=== PATIENT | female | born 1965 | race Caucasian/White ===

== ENCOUNTER → 2017-03-02 | Outpatient (CLI) | payer BC ==
--- NOTE | 2017-03-02 14:42 | RAD ---
Left knee, 3 views, 03/02/2017: History: Knee pain There is mild marginal spurring medially and laterally. There is mild spurring at the patellofemoral articulation. No fracture or dislocation is identified. No significant joint effusion is seen. IMPRESSION: 1. Mild degenerative change. 2. No acute bony abnormality is detected.
== END | disposition home or self-care (01) ==
LOC: DXRADRC 11:57
PROVIDERS: ATTEND Physician Assistant
DX: S89.82XA Other specified injuries of left lower leg, initial encounter (principal); M17.12 Unilateral primary osteoarthritis, left knee; M25.862 Other specified joint disorders, left knee; X58.XXXA Exposure to other specified factors, initial encounter; Y93.89 Activity, other specified; Y92.89 Other specified places as the place of occurrence of the external cause; Y99.8 Other external cause status
CPT/HCPCS: 73562

== ENCOUNTER 2020-04-20 10:55 | Emergency (ER) | payer BC ==
[~2020-04-20] VITALS: Ht 167.6 cm; Wt 172.6 kg
[2020-04-20] MEDS ORDERED: ONDANSETRON PF 4 MG/2 ML VIAL. IVP ONE (11:15)
[2020-04-20] MEDS ORDERED: MORPHINE SULFATE 4 MG/ML DISP.SYRIN. IV ONE (11:15)
--- NOTE | 2020-04-20 11:19 | PHYS DOC ---
General Adult EDM: Chief Complaint: BACK PAIN OR INJURY HPI: HPI: History obtained from the patient. Patient is a 54-year-old female with history of hypertension, hysterectomy who presents with chief complaint of gradual onset right flank pain over the past 3 days. She notes the pain is sharp in nature. States the pain seems to be worsening. She has tried naproxen and her sisters tramadol at home with no relief. She states the pain does not radiate. She notes some nausea without vomiting. Denies fevers. Does note increased urge to void. Denies dysuria or hematuria. Denies any history of kidney stone. Denies syncope. She denies any chest pain or shortness of breath. She states it is somewhat difficult to find a position of comfort. She states this pain is not made worse with food. She reports normal bowel movements. Patient denies any urinary retention, stool incontinence, saddle anesthesia, history of IV drug use, or history of cancer. Review of Systems: Review of Systems: Constitutional: Denies fever or chills Eyes: Denies change in visual acuity HENT: Denies nasal congestion or sore throat Respiratory: Denies cough or shortness of breath Cardiovascular: Denies chest pain or edema GI: Denies abdominal pain, nausea, vomiting, bloody stools or diarrhea : Increased urge to void Musculoskeletal: Flank pain Integument: Denies rash Neurologic: Denies headache, focal weakness or sensory changes Endocrine: Denies polyuria or polydipsia Lymphatic: Denies swollen glands Psychiatric: Denies depression or anxiety Heart Score: Risk Factors: Risk Factors: DM, Current or recent (<one month) smoker, HTN, HLP, family history of CAD, obesity. Risk Scores: Score 0 - 3: 2.5% MACE over next 6 weeks - Discharge Home Score 4 - 6: 20.3% MACE over next 6 weeks - Admit for Clinical Observation Score 7 - 10: 72.7% MACE over next 6 weeks - Early Invasive Strategies Current Medications: Current Meds: Current Medications Medications (Trade) Dose Ordered Sig/Guilherme Start Time Stop Time Status Last Admin Dose Admin Morphine Sulfate (Morphine 4mg Syringe) 4 mg 1X ONCE 04/20/20 11:15 04/20/20 11:16 DC Ondansetron HCl (Zofran) 4 mg 1X ONCE 04/20/20 11:15 04/20/20 11:16 DC Allergies: Allergies: Allergies Coded Allergies Type Severity Reaction Last Updated Verified ciprofloxacin Allergy Unknown 04/20/20 Yes latex Allergy Unknown 04/20/20 Yes Physical Exam: PE: Constitutional: Well developed, well nourished, no acute distress, non-toxic appearance. [] HENT: Normocephalic, atraumatic, bilateral external ears normal, oropharynx moist, no oral exudates, nose normal. [] Eyes: PERRLA, EOMI, conjunctiva normal, no discharge. [] Neck: Normal range of motion, no tenderness, supple, no stridor. [] Cardiovascular:Heart rate regular rhythm, no murmur [] Lungs & Thorax: Bilateral breath sounds clear to auscultation [] Abdomen: soft, no tenderness, no masses, no pulsatile masses. [] Skin: Warm, dry, no erythema, no rash. [] Back: Moderate right CVA tenderness. + 5/5 motor strength in dorsiflexion and plantarflexion of the great toes bilaterally. Sensation intact between the webbing of the first and second toes bilaterally. Extremities: No tenderness, no cyanosis, no clubbing, ROM intact, no edema. [] Neurologic: Alert and oriented X 3, normal motor function, normal sensory function, no focal deficits noted. [] Psychologic: Affect normal, judgement normal, mood normal. [] Current Patient Data: Labs: Laboratory Tests Test 04/20/20 11:09 04/20/20 11:20 04/20/20 12:52 Urine Collection Type Unknown Urine Color Yellow Urine Clarity Clear Urine pH 6.0 Urine Specific Abrams 1.015 Urine Protein Neg Urine Glucose (UA) Neg mg/dL Urine Ketones (Stick) Neg mg/dL Urine Blood Small Urine Nitrite Neg Urine Bilirubin Neg Urine Urobilinogen Dipstick 0.2 mg/dL Urine Leukocyte Esterase Neg Urine RBC 6-10 /HPF Urine WBC 1-4 /HPF Urine Squamous Epithelial Cells Many /LPF Urine Bacteria 0 /HPF White Blood Count 9.4 x10^3/uL Red Blood Count 4.95 x10^6/uL Hemoglobin 13.9 g/dL Hematocrit 42.6 % Mean Corpuscular Volume 86 fL Mean Corpuscular Hemoglobin 28 pg Mean Corpuscular Hemoglobin Concent 33 g/dL Red Cell Distribution Width 15.1 % Platelet Count 312 x10^3/uL Neutrophils (%) (Auto) 62 % Lymphocytes (%) (Auto) 27 % Monocytes (%) (Auto) 8 % Eosinophils (%) (Auto) 3 % Basophils (%) (Auto) 1 % Neutrophils # (Auto) 5.8 x10^3uL Lymphocytes # (Auto) 2.5 x10^3/uL Monocytes # (Auto) 0.8 x10^3/uL Eosinophils # (Auto) 0.3 x10^3/uL Basophils # (Auto) 0.1 x10^3/uL Sodium Level 133 mmol/L Potassium Level 4.2 mmol/L Chloride Level 98 mmol/L Carbon Dioxide Level 26 mmol/L Anion Gap 9 Blood Urea Nitrogen 15 mg/dL Creatinine 1.2 mg/dL Estimated GFR (Cockcroft-Gault) 46.5 Glucose Level 122 mg/dL Calcium Level 8.9 mg/dL Bedside Urine HCG, Qualitative hcg negative Current Medications Medications (Trade) Dose Ordered Sig/Guilherme Route PRN Reason Start Time Stop Time Status Last Admin Dose Admin Morphine Sulfate (Morphine 4mg Syringe) 4 mg 1X ONCE IV 04/20/20 11:15 04/20/20 11:16 DC 04/20/20 11:39 Ondansetron HCl (Zofran) 4 mg 1X ONCE IVP 04/20/20 11:15 04/20/20 11:16 DC 04/20/20 11:38 Sodium Chloride 1,000 ml @ 1,000 mls/hr 1X ONCE IV 04/20/20 11:45 04/20/20 12:44 DC 04/20/20 11:40 Acetaminophen/ Hydrocodone Bitart (Lortab 5/325) 2 tab 1X ONCE PO 04/20/20 12:30 04/20/20 12:32 DC 04/20/20 12:41 Vital Signs: Vital Signs Date Time Temp Pulse Resp B/P (MAP) Pulse Ox O2 Delivery O2 Flow Rate FiO2 04/20/20 12:42 89 18 141/77 (98) 93 Room Air 04/20/20 12:41 94 Room Air 04/20/20 12:14 79 18 124/89 (101) 95 Room Air 04/20/20 11:45 76 20 129/77 (94) 96 Room Air 04/20/20 11:39 95 Room Air 04/20/20 11:08 97.8 92 22 135/89 (227) 94 Room Air EKG: EKG: [] Radiology/Procedures: Radiology/Procedures: [][address] [address] IMAGING REPORT Signed PATIENT: NIKKI MARAVILLA ACCOUNT: [id number] : 1965 LOCATION: ER AGE: 54 SEX: F EXAM STATUS: REG ER ORD. PHYSICIAN: EVA ANGEL DO REASON: R flank pain PROCEDURE: CT ABDOMEN PELVIS WO CONTRAST EXAMINATION: CT ABDOMEN PELVIS WO CONTRAST (CT ABDOMEN/PELVIS WITHOUT IV CONTRAST) CLINICAL HISTORY: Right flank pain TECHNIQUE: Non-IV contrast imaging of the abdomen and pelvis was performed using standard technique, scanning from just above the dome of the diaphragm to the symphysis pubis. Unenhanced imaging is limited for the evaluation of some intra-abdominal and pelvic pathology. CT Dose Reduction Employed: One or more of the following individualized dose reduction techniques were utilized for this examination: 1. Automated exposure control 2. Adjustment of the mA and/or kV according to patient size 3. Use of iterative reconstruction technique. COMPARISON: None FINDINGS: Lower thorax: Unremarkable. Liver: Unremarkable. Biliary: Cholecystectomy Spleen: No splenomegaly. Pancreas: Unremarkable. Adrenals: No mass. Kidneys: No calculus, hydronephrosis or finding to suggest a cyst or mass in the unenhanced kidneys. GI Tract: No bowel dilation. Left colonic diverticulosis without evidence of acute diverticulitis on limited noncontrast evaluation. Normal appendix. Lymph Nodes: No lymphadenopathy. Mesentery/peritoneum: No ascites. Retroperitoneum: No mass. Vasculature: Arterial atherosclerotic disease without aneurysm. Pelvis: No mass or ascites. Minimally filled urinary bladder suboptimally evaluated. Bones/Soft Tissues: Mild thoracolumbar degenerative changes. IMPRESSION: No evidence of acute abdominopelvic abnormality. Colonic diverticulosis without evidence of diverticulitis on limited noncontrast evaluation. Electronically signed by: Percy Muñoz DO (04/20/2020 11:51 AM) [id number] DICTATED AND SIGNED BY: PERCY MUÑOZ DO DATE: 04/20/20 [id number] CC: JOSE RAMON ZEPEDA; TANQUARY,EVA H DO ~ Course & Med Decision Making: Course & Med Decision Making Pertinent Labs and Imaging studies reviewed. (See chart for details) [] Patient is a 54-year-old female presents with chief complaint of right lower back pain. She does note mild increased urge to void. Low suspicion for an ginal equivalent given the pain she is describing his lower back and she denies any chest pain or shortness of breath. Initial vital signs grossly unremarkable. Basic labs were obtained. Mild elevation of her creatinine at 1.2. CT imaging was obtained and does not show any acute abnormality. Urinalysis without obvious evidence of infection. White blood cells present without bacteria. She has no reproducible right lower quadrant tenderness to palpation at this time. small blood noted on urine sample. She may be experiencing a recently passed kidney stone. This could represent clinical pyelonephritis as well. Repeat examination her symptoms have improved. I do feel overall she is appropriate for discharge home with close 12 to 24-hour follow-up. Patient is agreeable to this. She be discharged home with a course of antibiotics for potential infection. Nausea medicine also be prescribed. She was instructed to return in 12 to 24 hours should her symptoms not improve or worsen. She has tolerated p.o. She has been ambulatory without difficulty. No red flag signs or symptoms regarding her back pain. She continues to deny any chest pain or shortness of breath. Stable for discharge home. Charly Disclaimer: Charly Disclaimer: This electronic medical record was generated, in whole or in part, using a voice recognition dictation system. Departure Departure: Impression: Primary Impression: Right flank pain Disposition: 01 HOME/RESIDENCE PRIOR TO ADM Condition: STABLE Referrals: JOSE RAMON ZEPEDA (PCP) Additional Instructions: Discharge Abdominal Pain Re-Check Precautions: I'm unsure of the specific cause of your abdominal pain. However, at this point I feel that you are low risk for a life threatening emergency and that discharge from the Emergency Department is safe. There is a very small possibility that you are just too early in your clinical course for our physical exam/labs/imaging to ascertain whether or not you have an emergent condition that could potentially cause permanent disability or be life threatening. As such, it is very important that you follow up with your primary doctor or return to the Emergency Department in 12-24 hours for re-assessment and further evaluation if clinically indicated. If you develop new or worsening symptoms then you should return to the Emergency Department immediately. Home Care Instructions: Abdominal Pain Many things may cause abdominal pain. Your ER visit might not show the exact reason you are having pain. In some cases, additional time is needed to determine if the cause is serious. Therefore you may be told to go home and watch for any changes or worsening in your condition. Before that, we may not know if you need more testing, or if hospitalization or surgery is necessary. If its not something serious, the pain may go away without treatment or get better with simple things like avoiding certain foods or medications. In the ER, your doctor asks you questions, examines you and in some cases, may order tests. These help doctors decide if the pain is from something serious. Tests are not always done and may not provide a definite answer. There can still be a problem, even with normal test results. Abdominal pain may be caused by something serious (like appendicitis), which is not obvious right away. Because of this, another checkup is needed to make sure you are OK. It is VERY IMPORTANT to follow up for a repeat exam, especially if you have any symptoms that are not going away or are getting worse. We recommend that you RETURN TO THE EMERGENCY ROOM IN 8-12 HOURS to be rechecked. If you cannot, you may follow up with your primary care doctor or clinic. It is important that you follow all of the instructions below. RETURN TO THE EMERGENCY ROOM IMMEDIATELY IF: The pain does not go away or gets worse. You have a fever. You keep throwing up and cannot keep anything down. You pass bloody or black stools. You develop new symptoms. HOME CARE INSTRUCTIONS Come back to the ER (or see your doctor) in 8-12 hours. DO NOT take laxatives unless directed by your doctor. Avoid the use of alcohol Take pain medicine only as directed by your doctor. Only take [id number] or prescription medicine as directed by your doctor . Try a clear liquid diet (broth, tea, jello, water) for the next 12-24 hours. Slowly move to a bland diet as tolerated. Do not eat greasy, fatty or spicy foods. Once you start getting better, go back to a normal, healthy diet, slowly over a few days. DISCHARGE PT INSTRUCTIONS: YOU HAVE BEEN EVALUATED FOR ABDOMINAL PAIN. HOWEVER, WE ARE UNABLE TO PROVIDE A DEFINITE CAUSE OF YOUR SYMPTOMS. EVEN THOUGH YOUR TESTS MAY HAVE BEEN NORMAL, YOU STILL COULD HAVE A SERIOUS CAUSE FOR YOUR ABDOMINAL PAIN, INCLUDING APPENDICITIS. THE BEST TEST TO DETERMINE IF YOU HAVE A SERIOUS CAUSE IS RE-EXAMINATION OVER TIME. WE USED TO ADMIT PATIENTS TO THE HOSPITAL FOR THIS, BUT CAN NOW ALLOW YOU TO GO HOME, & RETURN TO OUR ER THE NEXT DAY FOR RE- EXAMINATION. THUS, WE WOULD LIKE YOU TO RETURN TO OUR ER TOMORROW FOR YOUR RE- EVALUATION. (IF YOUR SYMPTOMS HAVE GONE AWAY, THEN YOU DO NOT NEED TO RETURN.) IF YOUR SYMPTOMS GET WORSE BETWEEN NOW & THEN, YOU SHOULD RETURN IMMEDIATELY & NOT WAIT UNTIL TOMORROW. SYMPTOMS TO LOOK FOR WORSENING PAIN, HIGH FEVER, PERSISTENT VOMITING [NOT CONTROLLED BY MEDICINE], AND/OR OVERALL WORSENING OF YOUR CONDITION. Scripts Cephalexin (KEFLEX) 500 Mg Capsule 500 MG PO BID for UTI for 5 Days, #10 TAB Prov: EVA ANGEL DO 04/20/20 Acetaminophen (TYLENOL) 325 Mg Tablet 1-2 TAB PO QID for pain, #20 TAB 2 Refills Prov: EVA ANGEL DO 04/20/20 EVA ANGEL DO Apr 20, 2020 11:19
[2020-04-20 11:39] LABS: BASO # 0.1 x10^3/uL (0.0-0.2); BASO % 1 % (0-3); EOS # 0.3 x10^3/uL (0.0-0.7); EOS % 3 % (0-3); HEMATOCRIT 42.6 % (36.0-47.0); HEMOGLOBIN 13.9 g/dL (12.0-15.5); LYMPH # 2.5 x10^3/uL (1.0-4.8); LYMPH % 27 % (24-48); MEAN CORPUSCULAR HEMOGLOBIN 28 pg (25-35); MEAN CORPUSCULAR HGB CONC 33 g/dL (31-37); MEAN CORPUSCULAR VOLUME 86 fL (79-100); MONO # 0.8 x10^3/uL (0.0-1.1); MONO % 8 % (0-9); NEUT # 5.8 x10^3uL (1.8-7.7); NEUT % 62 % (31-73); PLATELET COUNT 312 x10^3/uL (140-400); RED BLOOD COUNT 4.95 x10^6/uL (3.50-5.40); RED CELL DISTRIBUTION WIDTH 15.1 % (11.5-14.5); WHITE BLOOD COUNT 9.4 x10^3/uL (4.0-11.0)
[2020-04-20] MEDS ORDERED: IV NORMAL SALINE 1,000ML 1,000 ML IV ONE (11:45)
[2020-04-20 11:47] LABS: CALCIUM 8.9 mg/dL (8.5-10.1); CREATININE 1.2 mg/dL (0.6-1.0); GFR 46.5; POTASSIUM 4.2 mmol/L (3.5-5.1)
--- NOTE | 2020-04-20 11:54 | RAD ---
EXAMINATION: CT ABDOMEN PELVIS WO CONTRAST (CT ABDOMEN/PELVIS WITHOUT IV CONTRAST) CLINICAL HISTORY: Right flank pain TECHNIQUE: Non-IV contrast imaging of the abdomen and pelvis was performed using standard technique, scanning from just above the dome of the diaphragm to the symphysis pubis. Unenhanced imaging is limited for the evaluation of some intra-abdominal and pelvic pathology. CT Dose Reduction Employed: One or more of the following individualized dose reduction techniques were utilized for this examination: 1. Automated exposure control 2. Adjustment of the mA and/or kV according to patient size 3. Use of iterative reconstruction technique. COMPARISON: None FINDINGS: Lower thorax: Unremarkable. Liver: Unremarkable. Biliary: Cholecystectomy Spleen: No splenomegaly. Pancreas: Unremarkable. Adrenals: No mass. Kidneys: No calculus, hydronephrosis or finding to suggest a cyst or mass in the unenhanced kidneys. GI Tract: No bowel dilation. Left colonic diverticulosis without evidence of acute diverticulitis on limited noncontrast evaluation. Normal appendix. Lymph Nodes: No lymphadenopathy. Mesentery/peritoneum: No ascites. Retroperitoneum: No mass. Vasculature: Arterial atherosclerotic disease without aneurysm. Pelvis: No mass or ascites. Minimally filled urinary bladder suboptimally evaluated. Bones/Soft Tissues: Mild thoracolumbar degenerative changes. IMPRESSION: No evidence of acute abdominopelvic abnormality. Colonic diverticulosis without evidence of diverticulitis on limited noncontrast evaluation. Electronically signed by: Percy Del Real DO (04/20/2020 11:51 AM) [id number]
[2020-04-20] MEDS ORDERED: HYDROcodone/APAP 5/325MG 1 TAB TABLET PO ONE (12:30)
[2020-04-20 12:56] LABS: BILIRUBIN,URINE NEG (NEG); CLARITY,URINE CLEAR; COLOR,URINE YELLOW; GLUCOSE,URINE NEG (NEG)
[2020-04-20 12:57] LABS: BACTERIA,URINE 0 /HPF (0-FEW); NITRITE,URINE NEG (NEG); SQUAMOUS EPITHELIAL CELL,UR MANY /LPF; UROBILINOGEN,URINE 0.2 mg/dL (0.2 mg/dL)
[2020-04-20] MEDS ORDERED: ACET325T9 PO (13:33)
[2020-04-20] MEDS ORDERED: CEPH-264 PO (13:33)
[2020-04-20 13:39] VITALS: BP 111/65
== END 2020-04-20 14:05 | disposition home or self-care (01) ==
LOC: ER 10:55
DX: R10.9 Unspecified abdominal pain (principal); Z88.1 Allergy status to other antibiotic agents; Z91.040 Latex allergy status
CPT/HCPCS: 36415; 74176; 80048; 81001; 81025; 85025; 96361; 96374; 96375; 99284; J2270; J2405; J7030

== ENCOUNTER 2020-04-22 08:55 | Emergency (ER) | payer BC ==
[~2020-04-22] VITALS: Ht 167.6 cm; Wt 181.0 kg
[~2020-04-22 08:55] MED LIST: ACET325T9 PO; CEPH-264 PO
--- NOTE | 2020-04-22 09:13 | PHYS DOC ---
Past History Past Medical History: Anxiety, Depression, Diabetes, Hypertension Past Surgical History: Hysterectomy, Tonsillectomy Alcohol Use: None General Adult EDM: Chief Complaint: BACK PAIN OR INJURY HPI: HPI: 54-year-old female past medical history significant for niddm, hypertension, anxiety/depression, and morbid obesity, presents to the ED with complaints of atraumatic right sided low back pain described as a dull ache that radiates to her right hip/buttock, present for the past 4 days. Patient cannot recall what she was doing when her symptoms started, cannot recall any trauma, heavy lifting or inciting event. Complains of 10 out of 10 pain, no relief with Tylenol, Motrin and Naprosyn. Is taking her Keflex that she was prescribed. Last vomit was yesterday, normal brown color. History of hysterectomy and T&A surgery. Patient denies any history of alcohol or drug use. Is an IV drug user. No history of immunocompromised disease. No h/o prior back trauma. No recent nguyễn rgeries/procedures/hospitalizations. EMR was reviewed and patient was seen in the ED 2 days ago, CT abdomen pelvis without contrast shows diverticulosis with no diverticulitis, no aneurysm, no acute pathology. U/A contaminated-was treated for uti with keflex. Creatinine was 1.2. Review of Systems: Review of Systems: Constitutional: Denies fever or chills Eyes: Denies change in visual acuity HENT: Denies nasal congestion or sore throat Respiratory: Denies cough or shortness of breath Cardiovascular: Denies chest pain or edema GI: Denies abdominal pain, nausea, vomiting, bloody stools or diarrhea, melena, hematochezia, hematemesis or hemoptysis : Denies dysuria or hematuria, no urinary or bowel retention or incontinence Musculoskeletal: Denies joint pain or swelling Integument: Denies rash Neurologic: Denies headache, focal weakness or sensory changes, no neck stiffness or nuchal rigidity, no saddle anesthesia, no radiculopathy Endocrine: Denies polyuria or polydipsia Lymphatic: Denies swollen glands Psychiatric: Denies depression or anxiety Heart Score: Risk Factors: Risk Factors: DM, Current or recent (<one month) smoker, HTN, HLP, family history of CAD, obesity. Risk Scores: Score 0 - 3: 2.5% MACE over next 6 weeks - Discharge Home Score 4 - 6: 20.3% MACE over next 6 weeks - Admit for Clinical Observation Score 7 - 10: 72.7% MACE over next 6 weeks - Early Invasive Strategies Allergies: Allergies: Allergies Coded Allergies Type Severity Reaction Last Updated Verified ciprofloxacin Allergy Unknown 04/22/20 Yes latex Allergy Unknown 04/22/20 Yes Physical Exam: PE: Constitutional: Well developed, well nourished, no acute distress, non-toxic appearance, truncal morbid obesity HENT: Normocephalic, atraumatic, bilateral external ears normal, oropharynx moist, no oral exudates, nose normal. [] Eyes: EOMI, conjunctiva normal, no discharge. [] Neck: Normal range of motion, no tenderness, supple, no stridor. [] Cardiovascular: S1 and S2 present Lungs & Thorax: Speaking in full sentences, bilateral equal chest rise Abdomen: Bowel sounds normal, soft, no tenderness, no masses, no pulsatile masses. [] Skin: Warm, dry, no erythema, Back: right lateral L3/5 ttp, no rash, no midline back ttp, no CVA tenderness. [] straight leg test negative Extremities: No tenderness, no cyanosis, no clubbing, ROM intact, no edema. [] Neurologic: Alert and oriented X 3, normal motor function, normal sensory function, no focal deficits noted. [] Psychologic: Affect normal, judgement normal, mood normal. [] EKG: EKG: Sinus rhythm at 90 bpm, no axis deviation, normal intervals, T wave inversion V2, no ST elevations or ST depressions, low limb lead voltage Radiology/Procedures: Radiology/Procedures: IMAGING REPORT Signed PATIENT: NIKKI MARAVILLA ACCOUNT: [id number] : 1965 LOCATION: ER AGE: 54 SEX: F EXAM STATUS: REG ER ORD. PHYSICIAN: JOSE RAMON DWYER DO REASON: RIGHT LOWER BACK PAIN PROCEDURE: CT ABD PELV W/ IV CONTRST ONLY Study: CT abdomen/pelvis with intravenous contrast Indication: Right lower back pain. Comparison: 04/20/2020 Technique: Helical CT imaging performed of the abdomen and pelvis after the intravenous administration of 75 cc Omnipaque 300 contrast. Sagittal and coronal reformats were obtained. One or more of the following individualized dose reduction techniques were utilized for this examination: 1. Automated exposure control 2. Adjustment of the mA and/or kV according to patient size 3. Use of iterative reconstruction technique. Findings: No newly seen abnormality at the lower chest. Hepatic steatosis. The liver is somewhat prominent in size. Within normal limits size of the spleen. Surgically absent gallbladder. Unchanged/unremarkable pancreas. Normal adrenal glands. Unremarkable kidneys. No intrarenal stone on either side. No collecting system dilatation. Mildly distended urinary bladder. No localized or circumferential wall thickening. Absent uterus. No adnexal mass. Colonic diverticulosis without diverticulitis. Normal appendix. Nonobstructed small bowel. Poorly evaluated stomach on account of underdistention. Mild scattered calcific atherosclerosis. Nonaneurysmal aorta. Unremarkable major veins. Mildly enlarged precaval lymph node on image 33 series 2 is most likely reactive in the setting of hepatic steatosis. No retroperitoneal, mesenteric or pelvic adenopathy. No ascites or pneumoperitoneum. Unchanged ventral midline fat-containing hernias such is seen at the upper abdomen on image 29 series 2 and supraumbilical on image 61 series 2. Edema-like attenuation along the patient's umbilicus has increase in the interim but this is unlikely clinically significant given reported symptoms. Somewhat progressed scattered body wall edema as well. No newly seen abnormality of the musculature. No change in vertebral body height or alignment. Redemonstration of trace anterolisthesis of L4 on L5 in the setting of bilateral facet degeneration. Vacuum phenomenon at L5-S1 is unchanged. No evidence for severe central canal stenosis. Osseous neural foraminal stenosis is again greatest on the left at L5-S1. Impression: 1. No acute abnormality seen throughout the abdomen or pelvis. Redemonstration of hepatic steatosis/hepatomegaly, colonic diverticulosis and several uncomplicated ventral midline fat-containing hernias. 2. No acute or aggressive osseous process. Scattered degenerative changes are no different. No evidence for severe central canal stenosis. Osseous neural foraminal encroachment is greatest on the left at L5-S1 favored to be moderate. Electronically signed by: ROSALBA JARQUIN MD (04/22/2020 11:37 AM) [id number] DICTATED AND SIGNED BY: ROSALBA JARQUIN MD DATE: 04/22/20 1137 CC: JOSE RAMON ZEPEDA; JOSE RAMON DWYER DO ~ Course & Med Decision Making: Course & Med Decision Making Pertinent Labs and Imaging studies reviewed. (See chart for details) Concern for left L5-S1 neuropathy/radiculopathy. Red flags for back pain reviewed. Labs show improving creatinine from 1.2-1.1. No leukocytosis. Patient is afebrile and hemodynamically stable. Sodium 128, down from 133. Urinalysis shows no leukocyte esterase or nitrites, few bacteria. Encouraged patient to complete her antibiotics. Will prescribe Flexeril and anti- inflammatories as needed for pain, rest and conservative measures for L5-S1 neuropathy. Suspect associated muscle spasm of right low back. Strict ED return precautions given for neurologic deficits, saddle anesthesia, urinary bowel retention or incontinence. Encouraged urgent outpatient follow-up with PMD and Ortho. Life-threatening processes were considered but are low suspicion at this time, given history and physical exam. Pt was educated on all prescription medications and adverse effects. All patient's questions were answered and pt was stable at time of discharge. Life/limb-threatening differential includes but is not limited to, aortic dissection, cauda equina syndrome, transverse myelitis, spinal cord compression, epidural abscess or hematoma, osteomyelitis, disc herniation, surgical abdomen, stable or unstable fracture, renal colic/urosepsis, musculoskeletal injury, traumatic injury, intraabdominal or pelvic bleeding, I spoken with the patient and her caregivers. I explained the patient's condition, diagnoses and treatment plan based on the information available to me at this time. I have answered the patient and her caregiver's questions and addressed any concerns. The patient and her caregivers have a good understanding of patient's diagnosis, condition and treatment plan as can be expected at this point. Vital signs have been stable. Patient's condition is stable and appropriate for discharge from the emergency department. Patient will pursue further outpatient evaluation with primary care physician or other designated or consulting physician as outlined in the discharge instructions. The patient and/or caregivers are agreeable to this plan of care and follow-up instructions have been explained in detail. The patient and/or caregivers have received these instructions in written form and have expressed an understanding of the discharge instructions. The patient and/or caregivers are aware that any significant change of condition or worsening of symptoms should prompt immediate return to this or the closest emergency department or call to 911. Charly Disclaimer: Charly Disclaimer: This electronic medical record was generated, in whole or in part, using a voice recognition dictation system. Departure Departure: Impression: Primary Impression: Neuropathy, lumbosacral (radicular) Additional Impression: Low back pain Disposition: 01 HOME/RESIDENCE PRIOR TO ADM Condition: STABLE Referrals: JOSE RAMON ZEPEDA (PCP) in 3- 5 days Patient Instructions: Back Pain, Adult, Pain, Neuropathic Additional Instructions: FOLLOW UP WITH ORTHOPEDICS: [facility] [address] [place], [place] [address] [place] [id number] EMERGENCY DEPARTMENT GENERAL DISCHARGE INSTRUCTIONS Thank you for coming to [facility] (ED) today and trusting us with you care. We trust that you had a positivie experience in our Emergency Department. If you wish to speak to the department management, you may call the director at [phone]. YOUR FOLLOW UP INSTRUCTIONS ARE FOLLOWS: 1. Do you have a private Doctor? If you do not have a private doctor, please a sk for a resource list of physicians or clinics that may be able to assist you with follow up care. 2. The Emergency Physician has interpreted your x-rays. The X-Ray specialist will also review them. If there is a change in the findings, you will be notified in 48 hours when at all possible. 3. A lab test or culture has been done, your results will be reviewed and you will be notified if you need a change in treatment. ADDITIONAL INSTRUCTIONS AND INFORMATION: 1. Your care today has been supervised by a physician who is specially trained in emergency care. Many problems require more than one evaluation for a complete diagnosis and treatment. We recommend that you schedule your follow up appointment as recommended to ensure complete treatment of you illness or injury. If you are unable to obtain follow up care and continue to have a problem, or if your condition worsens, we recommend that you return to the ED. 2. We are not able to safely determine your condition over the phone nor are we able to give sound medical advice over the phone. For these safety reasons, if you call for medical advice we will ask you to come to the ED for further evaluation. 3. If you have any questions regarding these discharge instructions please call the ED at [phone]. SAFETY INFORMATION: In the interest of safety, wellness, and injury prevention; we encourage you to wear your sealbelt, if you smoke; quite smoking, and we encourage family to use a protective helmet for bicycling and other sporting events that present an increased risk for head injury. IF YOUR SYMPTOMS WORSEN OR NEW SYMPTOMS DEVELOP, OR YOU HAVE CONCERNS ABOUT YOUR CONDITION; OR IF YOUR CONDITION WORSENS WHILE YOU ARE WAITING FOR YOUR FOLLOW UP APPOINTMENT; EITHER CONTACT YOUR PRIMARY CARE DOCTOR, THE PHYSICIAN WHOSE NAME AND NUMBER YOU WERE GIVEN, OR RETURN TO THE ED IMMEDIATELY. Scripts Cyclobenzaprine Hcl (CYCLOBENZAPRINE HCL) 10 Mg Tablet 1 TAB PO TID PRN for MUSCLE SPASMS, #15 TAB Prov: JOSE RAMON DWYER DO 04/22/20 JOSE RAMON DWYER DO Apr 22, 2020 09:13
[2020-04-22] MEDS ORDERED: diazePAM 5 MG TABLET. PO ONE (09:45)
[2020-04-22] MEDS ORDERED: LIDOCAINE (700MG/PATCH) PATCH. ONE (09:46)
[2020-04-22] MEDS ORDERED: LIDOCAINE (700MG/PATCH) PATCH. TD SCH (09:47)
[2020-04-22 09:58] LABS: BASO # 0.1 x10^3/uL (0.0-0.2); BASO % 1 % (0-3); EOS # 0.2 x10^3/uL (0.0-0.7); EOS % 3 % (0-3); HEMOGLOBIN 13.3 g/dL (12.0-15.5); LYMPH # 1.9 x10^3/uL (1.0-4.8); LYMPH % 26 % (24-48); MEAN CORPUSCULAR HEMOGLOBIN 28 pg (25-35); MEAN CORPUSCULAR HGB CONC 33 g/dL (31-37); MEAN CORPUSCULAR VOLUME 86 fL (79-100); MONO # 0.6 x10^3/uL (0.0-1.1); MONO % 9 % (0-9); NEUT # 4.5 x10^3uL (1.8-7.7); NEUT % 61 % (31-73); PLATELET COUNT 290 x10^3/uL (140-400); RED BLOOD COUNT 4.78 x10^6/uL (3.50-5.40); RED CELL DISTRIBUTION WIDTH 14.6 % (11.5-14.5); WHITE BLOOD COUNT 7.3 x10^3/uL (4.0-11.0)
[2020-04-22 10:14] LABS: CALCIUM 8.8 mg/dL (8.5-10.1); CREATININE 1.1 mg/dL (0.6-1.0); GFR 51.4; POTASSIUM 4.3 mmol/L (3.5-5.1)
[2020-04-22 10:15] LABS: BILIRUBIN,URINE NEG (NEG); CLARITY,URINE CLEAR; COLOR,URINE YELLOW; GLUCOSE,URINE NEG (NEG)
[2020-04-22 10:16] LABS: BACTERIA,URINE FEW /HPF (0-FEW); NITRITE,URINE NEG (NEG); RBC,URINE OCC /HPF (0-2); SQUAMOUS EPITHELIAL CELL,UR FEW /LPF; UROBILINOGEN,URINE 0.2 mg/dL (0.2 mg/dL); WBC,URINE 0 /HPF (0-4)
[2020-04-22 10:20] LABS: ALBUMIN 3.2 g/dL (3.4-5.0); ALBUMIN/GLOBULIN RATIO 0.7 (1.0-1.7); C REACTIVE PROTEIN 24.7 mg/L (0-3.3); TOTAL BILIRUBIN 0.2 mg/dL (0.2-1.0); TOTAL PROTEIN 7.6 g/dL (6.4-8.2)
[2020-04-22] MEDS ORDERED: IOHEXOL 300 MG/ML 75 ML VIAL. IV ONE (10:30)
[2020-04-22] MEDS ORDERED: CONTRAST GIVEN. MC PRN (10:45)
[2020-04-22] MEDS ORDERED: IV NORMAL SALINE 1,000ML 1,000 ML IV ONE (10:45)
--- NOTE | 2020-04-22 11:40 | RAD ---
Study: CT abdomen/pelvis with intravenous contrast Indication: Right lower back pain. Comparison: 04/20/2020 Technique: Helical CT imaging performed of the abdomen and pelvis after the intravenous administration of 75 cc Omnipaque 300 contrast. Sagittal and coronal reformats were obtained. One or more of the following individualized dose reduction techniques were utilized for this examination: 1. Automated exposure control 2. Adjustment of the mA and/or kV according to patient size 3. Use of iterative reconstruction technique. Findings: No newly seen abnormality at the lower chest. Hepatic steatosis. The liver is somewhat prominent in size. Within normal limits size of the spleen. Surgically absent gallbladder. Unchanged/unremarkable pancreas. Normal adrenal glands. Unremarkable kidneys. No intrarenal stone on either side. No collecting system dilatation. Mildly distended urinary bladder. No localized or circumferential wall thickening. Absent uterus. No adnexal mass. Colonic diverticulosis without diverticulitis. Normal appendix. Nonobstructed small bowel. Poorly evaluated stomach on account of underdistention. Mild scattered calcific atherosclerosis. Nonaneurysmal aorta. Unremarkable major veins. Mildly enlarged precaval lymph node on image 33 series 2 is most likely reactive in the setting of hepatic steatosis. No retroperitoneal, mesenteric or pelvic adenopathy. No ascites or pneumoperitoneum. Unchanged ventral midline fat-containing hernias such is seen at the upper abdomen on image 29 series 2 and supraumbilical on image 61 series 2. Edema-like attenuation along the patient's umbilicus has increase in the interim but this is unlikely clinically significant given reported symptoms. Somewhat progressed scattered body wall edema as well. No newly seen abnormality of the musculature. No change in vertebral body height or alignment. Redemonstration of trace anterolisthesis of L4 on L5 in the setting of bilateral facet degeneration. Vacuum phenomenon at L5-S1 is unchanged. No evidence for severe central canal stenosis. Osseous neural foraminal stenosis is again greatest on the left at L5-S1. Impression: 1. No acute abnormality seen throughout the abdomen or pelvis. Redemonstration of hepatic steatosis/hepatomegaly, colonic diverticulosis and several uncomplicated ventral midline fat-containing hernias. 2. No acute or aggressive osseous process. Scattered degenerative changes are no different. No evidence for severe central canal stenosis. Osseous neural foraminal encroachment is greatest on the left at L5-S1 favored to be moderate. Electronically signed by: ROSALBA JARQUIN MD (04/22/2020 11:37 AM) [id number]
[2020-04-22 11:54] VITALS: BP 138/92
[2020-04-22] MEDS ORDERED: CYCL-331 PO (12:06)
[2020-04-22] MEDS ORDERED: PATCH REMOVAL. MC SCH (21:00)
--- NOTE | 2020-04-22 23:51 | EKG ---
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
== END 2020-04-22 12:10 | disposition home or self-care (01) ==
LOC: ER 08:55
DX: M54.17 Radiculopathy, lumbosacral region (principal); R11.10 Vomiting, unspecified; E11.9 Type 2 diabetes mellitus without complications; I10 Essential (primary) hypertension; Z90.710 Acquired absence of both cervix and uterus; E66.01 Morbid (severe) obesity due to excess calories; Z68.44 Body mass index [BMI] 60.0-69.9, adult; Z88.1 Allergy status to other antibiotic agents; Z91.040 Latex allergy status
CPT/HCPCS: 36415; 74177; 80053; 81001; 83690; 84484; 85025; 86140; 93005; 99285; Q9967

== ENCOUNTER 2020-05-22 08:58 | Emergency (ER) | payer BC ==
[~2020-05-22] VITALS: Ht 167.6 cm; Wt 173.0 kg
[~2020-05-22 08:58] MED LIST changes: +CYCL-331 PO
[2020-05-22 08:59] VITALS: BP 138/92
[2020-05-22] MEDS ORDERED: PRED20TA PO (09:55)
[2020-05-22] MEDS ORDERED: HYDR-3165 PO (09:55)
[2020-05-22] MEDS ORDERED: ORPH-16 PO (09:55)
--- NOTE | 2020-05-22 09:56 | PHYS DOC ---
Past History Past Medical History: Anxiety, Depression, Diabetes, Hypertension Past Surgical History: Hysterectomy, Tonsillectomy Alcohol Use: None General Adult EDM: Chief Complaint: BACK PAIN OR INJURY HPI: HPI: Patient is a [age] year old [sex] who presents with [] Review of Systems: Review of Systems: Constitutional: Denies fever or chills Eyes: Denies change in visual acuity HENT: Denies nasal congestion or sore throat Respiratory: Denies cough or shortness of breath Cardiovascular: Denies chest pain or edema GI: Denies abdominal pain, nausea, vomiting, bloody stools or diarrhea : Denies dysuria Musculoskeletal: Denies back pain or joint pain Integument: Denies rash Neurologic: Denies headache, focal weakness or sensory changes Endocrine: Denies polyuria or polydipsia Lymphatic: Denies swollen glands Psychiatric: Denies depression or anxiety Allergies: Allergies: Allergies Coded Allergies Type Severity Reaction Last Updated Verified ciprofloxacin Allergy Unknown 04/22/20 Yes latex Allergy Unknown 04/22/20 Yes Physical Exam: PE: Constitutional: Well developed, well nourished, no acute distress, non-toxic appearance. [] HENT: Normocephalic, atraumatic, bilateral external ears normal, oropharynx moist, no oral exudates, nose normal. [] Eyes: PERRLA, EOMI, conjunctiva normal, no discharge. [] Neck: Normal range of motion, no tenderness, supple, no stridor. [] Cardiovascular:Heart rate regular rhythm, no murmur [] Lungs & Thorax: Bilateral breath sounds clear to auscultation [] Abdomen: Bowel sounds normal, soft, no tenderness, no masses, no pulsatile masses. [] Skin: Warm, dry, no erythema, no rash. [] Back: No tenderness, no CVA tenderness. [] Extremities: No tenderness, no cyanosis, no clubbing, ROM intact, no edema. [] Neurologic: Alert and oriented X 3, normal motor function, normal sensory function, no focal deficits noted. [] Psychologic: Affect normal, judgement normal, mood normal. [] Current Patient Data: Vital Signs: Vital Signs Date Time Temp Pulse Resp B/P (MAP) Pulse Ox O2 Delivery O2 Flow Rate FiO2 05/22/20 08:59 97.8 79 16 138/92 (107) 95 Room Air EKG: EKG: [] Radiology/Procedures: Radiology/Procedures: [] Heart Score: Risk Factors: Risk Factors: DM, Current or recent (<one month) smoker, HTN, HLP, family history of CAD, obesity. Risk Scores: Score 0 - 3: 2.5% MACE over next 6 weeks - Discharge Home Score 4 - 6: 20.3% MACE over next 6 weeks - Admit for Clinical Observation Score 7 - 10: 72.7% MACE over next 6 weeks - Early Invasive Strategies Course & Med Decision Making: Course & Med Decision Making Pertinent Labs and Imaging studies reviewed. (See chart for details) [] Dragon Disclaimer: Dragon Disclaimer: This electronic medical record was generated, in whole or in part, using a voice recognition dictation system. Departure Departure: Impression: Primary Impression: Sciatica Qualified Codes: M54.32 - Sciatica, left side Additional Impression: Acute exacerbation of chronic low back pain Disposition: 01 DC HOME SELF CARE/HOMELESS Condition: STABLE Referrals: JOSE RAMON ZEPEDA (PCP) Patient Instructions: Back Pain, Adult, [id number], Sciatica, [id number] Additional Instructions: Call Dr. Maninder King (pain management) for further evaluation and treatment of your back pain. Address: [address] [place] [address], [place] [address] Scripts Hydrocodone Bit/Acetaminophen (NORCO 5-325 TABLET) 1 Each Tablet 0.5-1 TAB PO Q6HRS PRN for PAIN, #10 TAB Prov: TEA TREADWELL DO 05/22/20 Prednisone (PREDNISONE) 20 Mg Tablet 2 TAB PO DAILY for Back pain, #8 TAB Start this prescription tomorrow, Tuesday05/23/2020 Prov: TEA TREADWELL DO 05/22/20 Orphenadrine Citrate (ORPHENADRINE CITRATE) 100 Mg Tablet.er 1 TAB PO BID PRN for MUSCLE PAIN, #14 TAB 0 Refills Prov: TEA TREADWELL DO 05/22/20 TEA TREADWELL DO May 22, 2020 09:56
[2020-05-22] MEDS ORDERED: ORPHENADRINE CITRATE 60 MG/2 ML VIAL. IM ONE (10:00)
[2020-05-22] MEDS ORDERED: DEXAMETHASONE 4 MG TABLET PO ONE (10:00)
[2020-05-22] MEDS ORDERED: HYDROcodone/APAP 5/325MG 1 TAB TABLET PO ONE (10:00)
== END 2020-05-22 10:09 | disposition home or self-care (01) ==
LOC: ER 08:58
DX: G89.29 Other chronic pain (principal); M54.42 Lumbago with sciatica, left side; F41.9 Anxiety disorder, unspecified; F32.9 Major depressive disorder, single episode, unspecified; E11.9 Type 2 diabetes mellitus without complications; I10 Essential (primary) hypertension; Z90.710 Acquired absence of both cervix and uterus; Z88.1 Allergy status to other antibiotic agents; Z91.040 Latex allergy status
CPT/HCPCS: 96372; 99283; J2360; J8540

== ENCOUNTER 2020-09-14 20:43 | Inpatient (IN) | payer BC ==
[~2020-09-14] VITALS: Ht 167.6 cm; Wt 179.9 kg
[~2020-09-14 20:43] MED LIST changes: +HYDR-3165 PO; +ORPH-16 PO; +PRED20TA PO
--- NOTE | 2020-09-14 20:48 | PHYS DOC ---
Past History Past Medical History: Anxiety, Arthritis, Depression, Diabetes, DVT, Hypertension, Sciatica, Other Past Medical History Morbid obesity Past Surgical History: Hysterectomy, Tonsillectomy Smoking: Non-smoker Alcohol Use: None Drug Use: None General Adult HPI: HPI: ''.. I feeling sandra bad tonight... it been coming on last few days.. my legs have gotten swollen.. and now it hurt even to just touch them... I am also more short of breath last couple days... But the main thing is legs are really hurting..." Patient is a 54 year old female who presents with above hx and complaints of dyspnea, bilateral leg edema, pain, and erythema. Patient has recently had increase in her hypertensive and diuretic meds. Patient has significant history of anxiety, depression, diabetes, colonic diverticulosis, ventral midline hernia s, degenerative joint changes, urinary tract infections, sciatica, hypertension, low back pain and morbid obesity. Patient denies any history of immunosuppression. No recent travel. No specific ill contacts. Normally follows with Dr. Gerber. Currently states pain in legs is 9-10 out of 10. Patient does have history of previous pulmonary embolism and DVT. Patient was on abdomen for period of time but was stopped some years back. Patient does have history of previous hysterectomy and tonsillectomy and adenectomy. Patient has had episodes of bronchitis but has never smoked. Review of Systems: Review of Systems: Constitutional: Denies fever or chills Eyes: Denies change in visual acuity HENT: Denies nasal congestion or sore throat Respiratory: Complaints of shortness of breath Cardiovascular: Complains of edema GI: Denies abdominal pain, nausea, vomiting, bloody stools or diarrhea : Denies dysuria Musculoskeletal: Complains of bilateral lateral lower leg pain and edema Integument: Denies rash Neurologic: Denies headache, focal weakness or sensory changes Endocrine: Denies polyuria or polydipsia Lymphatic: Denies swollen glands Psychiatric: Denies depression or anxiety Family History: Family History: Noncontributory to presentation Current Medications: Current Meds: See nursing for home medications Allergies: Allergies: Allergies Coded Allergies Type Severity Reaction Last Updated Verified ciprofloxacin Allergy Unknown 04/22/20 Yes latex Allergy Unknown 04/22/20 Yes Physical Exam: PE: Constitutional: Moderate acute distress, non-toxic appearance. [] HENT: Normocephalic, atraumatic, bilateral external ears normal, oropharynx moist, no oral exudates, nose normal. [] Eyes: PERRLA, EOMI, conjunctiva normal, no discharge. [] Neck: Normal range of motion, no tenderness, supple, no stridor. More than 17-1/2 inches circumference Cardiovascular: Tachycardia heart rate regular rhythm, no murmur []. PMI to the left Lungs & Thorax: Bilateral breath sounds equal apex with few scattered wheezes but does have bilateral basilar crackles posteriorly on auscultation [] Abdomen: Bowel sounds normal, soft, no tenderness, no masses, no pulsatile masses. Morbidly obese with large pannus Skin: Warm, dry, no erythema, bilateral lower leg cellulitic rash and venous stasis] Back: No tenderness, no CVA tenderness. [] Extremities: No tenderness, no cyanosis, no clubbing, ROM intact, bilateral lower leg edema. [] Cording behind right calf. Neurologic: Alert and oriented X 3, moves all extremities on request, does have distal sensory, no gross focal deficits noted. [] Psychologic: Affect anxious, judgement normal, mood normal. [] EKG: EKG: My interpretation EKG shows a sinus rhythm at 93 bpm. No findings of acute STEMI with contralateral changes. [] Radiology/Procedures: Radiology/Procedures: [][place] [address] IMAGING REPORT Signed PATIENT: NIKKI MARAVILLA ACCOUNT: [id number] : 1965 LOCATION: ER AGE: 54 SEX: F EXAM STATUS: REG ER ORD. PHYSICIAN: CITLALLI MEDRANO MD REASON: dyspnea PROCEDURE: PORTABLE CHEST 1V Exam: Chest one view INDICATION: Dyspnea TECHNIQUE: Frontal view of the chest Comparisons: None FINDINGS: Heart is mildly enlarged. Pulmonary vessels are within normal limits. The lung and pleural spaces are clear. IMPRESSION: No acute pulmonary process. Electronically signed by: Ta Hernández MD (09/14/2020 9:47 PM) [facility] DICTATED AND SIGNED BY: TA HERNÁNDEZ MD DATE: 09/14/202145 CC: CITLALLI MEDRANO MD; BREONNA GERBER MD ~MTH0 0 Heart Score: HEART Score for Chest Pain: HEART Score for Chest Pain Response (Comments) Value History Slighlty/Non-Suspicious 0 ECG Nonspecific Repolarizatio 1 Age >45 - < 65 1 Risk Factors 1 or 2 Risk Factors 1 Troponin < Normal Limit 0 Total 3 Risk Factors: Risk Factors: DM, Current or recent (<one month) smoker, HTN, HLP, family history of CAD, obesity. Risk Scores: Score 0 - 3: 2.5% MACE over next 6 weeks - Discharge Home Score 4 - 6: 20.3% MACE over next 6 weeks - Admit for Clinical Observation Score 7 - 10: 72.7% MACE over next 6 weeks - Early Invasive Strategies Course & Med Decision Making: Course & Med Decision Making Pertinent Labs and Imaging studies reviewed. (See chart for details) Discussed presentation, testing and tx. with Dr. Moy. Will admit for further evaluation. Will anticoagulate at this time and obtain ultrasound in a.m. Will cover for cellulitis. Impression:: 1. Cellulitis 2. History of DVT and pulmonary embolisms 3. Diabetes 4. Morbid obesity 5. Hypoxia 6. Elevated CRP 26.1 7. Elevated D-dimer of 0.99 [] Dragon Disclaimer: Dragon Disclaimer: This electronic medical record was generated, in whole or in part, using a voice recognition dictation system. Departure Departure: Referrals: BREONNA GERBER MD (PCP) Dragon Disclaimer This chart was dictated in whole or in part using Voice Recognition software in a busy, high-work load, and often noisy Emergency Department environment. It may contain unintended and wholly unrecognized errors or omissions. Dragon Disclaimer This chart was dictated in whole or in part using Voice Recognition software in a busy, high-work load, and often noisy Emergency Department environment. It may contain unintended and wholly unrecognized errors or omissions. Dragon Disclaimer This chart was dictated in whole or in part using Voice Recognition software in a busy, high-work load, and often noisy Emergency Department environment. It may contain unintended and wholly unrecognized errors or omissions. CITLALLI MEDRANO MD Sep 14, 2020 20:48
[2020-09-14] MEDS ORDERED: ENOXAPARIN ** NOTE DOSE ** SYRINGE SQ ONE (21:30)
[2020-09-14] MEDS ORDERED: ASPIRIN CHEWABLE 81 MG TABLET. PO ONE (21:30)
[2020-09-14] MEDS ORDERED: IV NORMAL SALINE 50ML 50 ML ONE (21:30)
[2020-09-14] MEDS ORDERED: IPRATRPIUM/ALBUTEROL 0.5/2.5MG 3 ML NEBU. NEB ONE (21:30)
[2020-09-14] MEDS ORDERED: FUROSEMIDE 40 MG/4 ML VIAL IVP ONE (21:30)
[2020-09-14] MEDS ORDERED: cefTRIAXone SODIUM 1 GM VIAL ONE (21:31)
[2020-09-14 21:34] LABS: BASO # 0.1 x10^3/uL (0.0-0.2); BASO % 1 % (0-3); EOS # 0.2 x10^3/uL (0.0-0.7); EOS % 3 % (0-3); HEMATOCRIT 37.9 % (36.0-47.0); HEMOGLOBIN 12.3 g/dL (12.0-15.5); LYMPH # 2.1 x10^3/uL (1.0-4.8); LYMPH % 25 % (24-48); MEAN CORPUSCULAR HEMOGLOBIN 28 pg (25-35); MEAN CORPUSCULAR HGB CONC 32 g/dL (31-37); MEAN CORPUSCULAR VOLUME 87 fL (79-100); MONO % 11 % (0-9); NEUT # 5.1 x10^3uL (1.8-7.7); NEUT % 60 % (31-73); PLATELET COUNT 294 x10^3/uL (140-400); RED BLOOD COUNT 4.36 x10^6/uL (3.50-5.40); RED CELL DISTRIBUTION WIDTH 14.3 % (11.5-14.5); WHITE BLOOD COUNT 8.5 x10^3/uL (4.0-11.0)
[2020-09-14 21:46] LABS: AMPHETAMINE/METHAMPHETAMINE NEG (NEG); BARBITURATES NEG (NEG); BENZODIAZEPINES NEG (NEG); CANNABINOIDS NEG (NEG); COCAINE NEG (NEG); METHADONE NEG (NEG); OPIATES NEG (NEG); PHENCYCLIDINE NEG (NEG)
--- NOTE | 2020-09-14 21:49 | RAD ---
Exam: Chest one view INDICATION: Dyspnea TECHNIQUE: Frontal view of the chest Comparisons: None FINDINGS: Heart is mildly enlarged. Pulmonary vessels are within normal limits. The lung and pleural spaces are clear. IMPRESSION: No acute pulmonary process. Electronically signed by: Ta Talamantes MD (09/14/2020 9:47 PM) [facility]
[2020-09-14 21:52] LABS: CALCIUM 9.2 mg/dL (8.5-10.1); CREATININE 1.5 mg/dL (0.6-1.0); GFR 35.9; POTASSIUM 4.2 mmol/L (3.5-5.1)
[2020-09-14 22:01] LABS: BACTERIA,URINE FEW /HPF (0-FEW); BILIRUBIN,URINE NEG (NEG); CLARITY,URINE CLEAR; COLOR,URINE STRAW; GLUCOSE,URINE NEG (NEG); NITRITE,URINE NEG (NEG); SQUAMOUS EPITHELIAL CELL,UR FEW /LPF; WBC,URINE OCC /HPF (0-4)
[2020-09-14 22:07] LABS: ALBUMIN 2.9 g/dL (3.4-5.0); C REACTIVE PROTEIN 26.2 mg/L (0-3.3); DIRECT BILIRUBIN 0.1 mg/dL (0.0-0.2); MAGNESIUM 1.8 mg/dL (1.8-2.4); TOTAL BILIRUBIN 0.2 mg/dL (0.2-1.0); TOTAL PROTEIN 7.4 g/dL (6.4-8.2)
[2020-09-14 22:19] LABS: BGAS PH 7.43 (7.35-7.45)
[2020-09-14] MEDS ORDERED: MORPHINE SULFATE 10 MG/ML SYRINGE. SQ ONE (22:30)
[2020-09-14] MEDS ORDERED: ACETAMINOPHEN 325 MG TABLET PO PRN (23:00)
[2020-09-14] MEDS ORDERED: ONDANSETRON PF 4 MG/2 ML VIAL. IVP PRN (23:00)
--- NOTE | 2020-09-14 23:00 | EKG ---
[address] [address] Test Date: 2020-09-14 Test Time: 20:55:23 Pat Name: NIKKI MARAVILLA Department: Room: Gender: F Weatherization Specialist: : 1965 Requested By: CITLALLI MEDRANO Order Number: [id number] Reading MD: Measurements Intervals [place] Rate: 93 P: 0 NV: 144 QRS: 19 QRSD: 92 T: 36 QT: 366 QTc: 458 Interpretive Statements SINUS RHYTHM NORMAL ECG RI6.02 No previous ECG available for comparison
[2020-09-14] MEDS ORDERED: ANTI-COAG MONITOR BY PHARMACY. MC PRN (23:30)
[2020-09-14] MEDS ORDERED: TETANUS AND DIPHTHERIA TOX/PF 0.5 ML VIAL. VAX IM ONE (23:30)
[2020-09-14 23:59] VITALS: BP 98/65
[2020-09-15] MEDS ORDERED: TORS100T3 PO (00:15)
[2020-09-15] MEDS ORDERED: OLME1TAB25 PO (00:15)
[2020-09-15] MEDS ORDERED: METF10007 PO ×2 (00:15→00:20)
[2020-09-15] MEDS ORDERED: ATOR40TA PO (00:15)
[2020-09-15] MEDS ORDERED: CLON0.5T4 PO (00:15)
[2020-09-15] MEDS ORDERED: OLAN20TA3 PO (00:15)
[2020-09-15] MEDS ORDERED: POTA-163 PO (00:15)
[2020-09-15] MEDS ORDERED: GABA-586 PO (00:15)
[2020-09-15] MEDS: OLANZapine 10 MG TABLET PO SCH ×2 (00:58→20:28)
[2020-09-15] MEDS: clonazePAM 0.5 MG TABLET PO SCH ×2 (00:58→20:28)
[2020-09-15] MEDS: MORPHINE SULFATE 10 MG/ML SYRINGE. SQ PRN ×3 (01:19→09:47)
--- NOTE | 2020-09-15 01:41 | NUR ---
The patient, NIKKI MARAVILLA, 54 y/o, F admitted by JANNY BOYD MD, was given written information regarding hospital policies, unit procedures and contact persons. Valuables were checked. Pt arrives in severe pain to bilat LE, legs are hot red and edematous. Unable to check for pitting edema really, it obviously pits, but didn't check secondary to excess pain to chase and surrounding areas. Pt states she was supposed to see [facility] for lab in AM but was in so much pain, and has had a history of PE she decided to present to ED. She has a significant anxiety/psych history, is taking clonazepam and zyprexa at HS. SQ morphine given to patient 10 mg to help with the intense unrelenting pain to her LE. Pt reports immediate relief after this. Pt states she had a PE on her last admission, ED administered 180 mg of Lovenox. Pt stated she had not had good results as far as output from the lasix and demadex and that also is what brought her to ED. Pt smiles on approach, admits to pain and anxiety, but is compliant and cooperative.
[2020-09-15 03:41] LABS: BASO # 0.1 x10^3/uL (0.0-0.2); BASO % 1 % (0-3); EOS # 0.2 x10^3/uL (0.0-0.7); EOS % 2 % (0-3); HEMATOCRIT 36.3 % (36.0-47.0); HEMOGLOBIN 11.8 g/dL (12.0-15.5); LYMPH % 22 % (24-48); MEAN CORPUSCULAR HEMOGLOBIN 29 pg (25-35); MEAN CORPUSCULAR HGB CONC 33 g/dL (31-37); MEAN CORPUSCULAR VOLUME 88 fL (79-100); MONO # 0.8 x10^3/uL (0.0-1.1); MONO % 9 % (0-9); NEUT # 5.9 x10^3uL (1.8-7.7); NEUT % 66 % (31-73); PLATELET COUNT 296 x10^3/uL (140-400); RED BLOOD COUNT 4.14 x10^6/uL (3.50-5.40); RED CELL DISTRIBUTION WIDTH 13.9 % (11.5-14.5)
[2020-09-15 03:52] LABS: CALCIUM 8.8 mg/dL (8.5-10.1); CREATININE 1.5 mg/dL (0.6-1.0); GFR 35.9; POTASSIUM 4.5 mmol/L (3.5-5.1)
[2020-09-15] MEDS: IPRATRPIUM/ALBUTEROL 0.5/2.5MG 3 ML NEBU. NEB SCH ×4 (04:59→20:00)
--- NOTE | 2020-09-15 04:59 | NUR ---
pt was sleeping and upon waking she said that she did not want a tx at this time. She was ok with getting one later today. she went back to sleep.
[2020-09-15 06:08] VITALS: BP 95/66
[2020-09-15 08:00] VITALS: BP 123/77
[2020-09-15] MEDS ORDERED: TETANUS AND DIPHTHERIA TOX/PF 0.5 ML VIAL. VAX IM ONE (08:00)
[2020-09-15] MEDS: ASPIRIN CHEWABLE 81 MG TABLET. PO SCH (08:12)
[2020-09-15] MEDS: POTASSIUM CHLORIDE 20 MEQ TABLET.ER. PO SCH ×2 (08:12→20:29)
[2020-09-15] MEDS: GABAPENTIN 300 MG CAPSULE. PO SCH ×3 (08:12→20:29)
[2020-09-15] MEDS ORDERED: SMZ/TMP 800/160MG TABLET. PO SCH (09:00)
[2020-09-15] MEDS ORDERED: ENOXAPARIN ** NOTE DOSE ** SYRINGE SQ SCH (09:00)
[2020-09-15] MEDS ORDERED: TORSEMIDE 20 MG TABLET. PO SCH (09:00)
[2020-09-15] MEDS ORDERED: hydroCHLOROthiazide 25 MG TABLET PO SCH (09:00)
[2020-09-15] MEDS ORDERED: LOSARTAN 50 MG TABLET. PO SCH (09:00)
[2020-09-15] MEDS: LACTOBACILLUS RHAMNOSUS GG 1 CAPSULE. PO SCH ×2 (09:15→20:29)
--- NOTE | 2020-09-15 10:13 | RAD ---
EXAM: Bilateral lower extremity venous Doppler. HISTORY: Bilateral lower extremity pain/swelling. COMPARISON: None. FINDINGS: Grayscale and Doppler analysis of the bilateral lower extremity deep venous systems was per formed with graded compression and augmentation. The common femoral, greater saphenous, superficial f emoral, popliteal and calf veins were assessed. The right posterior tibial vein was difficult to visu leena due to soft tissue edema and patient body habitus. There is no evidence of deep venous thrombosis. A 3.9 x 1.4 cm cyst in the right popliteal fossa is i ncidentally noted. IMPRESSION: 1. No evidence of deep venous thrombosis in either lower extremity. 2. Incidental 3.9 cm right popliteal cyst. Electronically signed by: Pippa Gillis MD (09/15/2020 10:11 AM) [id number]
[2020-09-15 10:47] VITALS: BP 118/74
[2020-09-15 15:00] VITALS: BP 103/66
[2020-09-15] MEDS ORDERED: FUROSEMIDE 40 MG/4 ML VIAL IVP ONE (15:45)
--- NOTE | 2020-09-15 15:55 | HP ---
ADMIT DATE: 09/14/2020 HISTORY OF PRESENT ILLNESS: The patient is a 54-year-old female patient who came to the Emergency Room with a complaint of swollen legs that are very painful to touch. She also complained of shortness of breath for the last couple of days, but her biggest complaint was that her legs are really hurting. She stated that she recently had an increase in her hypertensive and diabetic medication. The patient has significant history of anxiety and depression. According to Mikayla, Dr. Jasso has discontinued her Lasix and put her on torsemide and since then, she has not really urinated much. She also complained of pain in her legs that she rates about 9-10/10. The patient does have history of previous pulmonary embolism and DVT. She does have history of episodes of bronchitis, although she has never smoked according to her. She was extensively evaluated in the Emergency Room and has had lab work including CBC as well as chemistry that was unremarkable. Her blood gases showed a pH of 7.43, pCO2 of 51, and pO2 of 34. Her D-dimer was high at 0.99. Urinalysis was unremarkable and toxic screen was negative. She was admitted with cellulitis, history of deep venous thrombosis and pulmonary embolism, diabetes, morbid obesity, acute hypoxic respiratory failure and elevated D-dimer. She was started on IV fluid and ceftriaxone as well as Bactrim and was admitted for further evaluation and treatment. PAST MEDICAL HISTORY: Significant for hypertension, hyperlipidemia, type 2 diabetes mellitus, hypothyroidism, has a history of DVT and pulmonary emboli as well as obstructive sleep apnea, although she said that she has sleep study and that did not approve it. She is also known to have depression and anxiety. PAST SURGICAL HISTORY: Significant for right foot surgery, right knee arthroscopic surgery, tonsillectomy, adenoidectomy, total abdominal hysterectomy, bilateral salpingo-oophorectomy. ALLERGIES: SHE IS ALLERGIC TO CIPRO AND LATEX. MEDICATIONS: She is currently on following medications: She is on atorvastatin calcium 40 mg at bedtime. She is on olmesartan/hydrochlorothiazide 40/25 one tablet once a day, clonazepam 0.5 mg at bedtime, gabapentin 300 mg 3 times a day, olanzapine for Zyprexa 20 mg at bedtime, potassium chloride 20 mEq twice a day, torsemide 100 mg p.o. daily, metformin 1000 mg twice a day before meals. PHYSICAL EXAMINATION: GENERAL: On arrival to the Emergency Room, the patient was in moderate acute distress, nontoxic in appearance. There is no pallor, jaundice or cyanosis. No lymphadenopathy. No thyromegaly. No jugular venous distention. Marked bilateral lower limb edema. VITAL SIGNS: Her heart rate on arrival was 88, blood pressure was 123/88, temperature 97.8, respiratory rate was 18 and oxygen saturation was 94% on room air. HEAD, EYES, EARS, NOSE AND THROAT: Showed normocephalic, atraumatic. NECK: Supple. HEART: Showed normal first and second heart sounds. No gallop or murmur. CHEST: Clear to auscultation. No crepitation or rhonchi. ABDOMEN: Distended, soft, nontender. NEUROLOGIC: She was awake, alert, responding appropriately. All cranial nerves intact. EXTREMITIES: She moves extremities without difficulty, although her both extremities are markedly swollen, the right one is red and tender to touch, but there is no clubbing or cyanosis. LABORATORY DATA: While in the Emergency Room, she has had lab work done, which showed a white cell count of 8500, hemoglobin 12.3, hematocrit 38, MCV 87, and platelet count of 294,000. Her chemistry showed a serum sodium 139, potassium 4.2, chloride 102, bicarbonate 31, anion gap of 6, BUN 14, creatinine 1.5, estimated GFR was 36 and glucose was 112, calcium was 9.2, magnesium was 1.8. Total bilirubin, AST, ALT, alkaline phosphatase were normal. Her CK was 103. C-reactive protein was 26.2 mg/dL. Beta natriuretic peptide was 162. Total protein 7.4, albumin was 2.9. Her prothrombin time was 10, INR 1, aPTT was 26, and D-dimer was 0.99. Her toxic screen was negative. Her chest x-ray done, showed that the patient's heart is mildly enlarged. Pulmonary vessels are within normal limits. The lungs and pleural spaces are clear. IMPRESSION AND PLAN: She was admitted and she was started on IV ceftriaxone as well as Bactrim, was on therapeutic dose of Lovenox at 180 mg subcutaneous twice a day. Continue with all other medication for right lower extremity cellulitis, acute hypoxic respiratory failure. Other medical problems obviously include hypertension, diabetes, hyperlipidemia, hypothyroidism, deep venous thrombosis and pulmonary embolism and generalized osteoarthritis as well as morbid obesity. She is also known to have depression and anxiety. JANNY BOYD MD DR: ABHI/monica JOB#: [id number] / [id number]
[2020-09-15 16:28] LABS: BGAS PH 7.34 (7.35-7.45)
--- NOTE | 2020-09-15 17:49 | NUR ---
Pt verbalized unknown home med Synthroid medication and dosage verified with pharmacy
[2020-09-15] MEDS ORDERED: LEVO50TA5 PO (17:52)
[2020-09-15 20:19] VITALS: BP 118/82
[2020-09-15] MEDS: ATORVASTATIN CALCIUM 20 MG TABLET PO SCH (20:28)
[2020-09-15] MEDS: ENOXAPARIN ** NOTE DOSE ** SYRINGE SQ SCH (20:29)
[2020-09-15] MEDS ORDERED: OLANZAPINE 20 MG PO SCH (21:00)
[2020-09-15] MEDS ORDERED: clonazePAM 0.5 MG TABLET PO SCH (21:00)
--- NOTE | 2020-09-15 21:13 | PN ---
DATE: 09/15/2020 SUBJECTIVE: The patient was admitted last night with cellulitis, acute hypoxic respiratory failure, marked bilateral lower extremity edema and history of DVT and PE, so she was started originally on torsemide. She continues on hydrochlorothiazide and losartan as well as therapeutic dose of Lovenox. When I saw her this afternoon, she continued to complain of severe pain in her both feet. She is diabetic and she probably has diabetic neuropathy. She is already on 300 mg 3 times a day of gabapentin. I did make some changes in her medication. I discontinued her trimethoprim/sulfamethoxazole. I discontinued losartan, hydrochlorothiazide and started her on IV Zyvox as well as IV Lasix. PHYSICAL EXAMINATION: GENERAL: When I saw her this afternoon, she looked well and was clearly in no apparent respiratory distress. No pallor, jaundice, cyanosis or thyromegaly. No jugular venous distension. No lower limb edema. VITAL SIGNS: Her heart rate was 87, blood pressure was 118/74, temperature was 97.9, respiratory rate 24 and oxygen saturation was 90% on 2 liters of oxygen. The rest of clinical exam is stable. Her legs are very swollen and erythema, more so on the right than left. PLAN: To continue with IV antibiotic in the form of Zyvox as well as ceftriaxone. Discontinue the trimethoprim. I discontinued her losartan discontinued her hydrochlorothiazide and was started on IV Lasix. I kept down her Lovenox to 150 mg subcutaneous twice a day. I will arrange for a V/Q scan that can be hopefully done tomorrow if she can be accommodated. Unfortunately, her creatinine clearance is around 36, which obviously does not allow us to do the CT angio of the chest. JANNY BOYD MD DR: ABHI/monica JOB#: [id number] / [id number]
--- NOTE | 2020-09-15 21:29 | PN ---
DATE: 09/15/2020 SUBJECTIVE: The patient was admitted yesterday with markedly swollen lower extremities that are very painful. There is also some redness and was admitted with bilateral lower extremity cellulitis. She also was admitted with acute hypoxic respiratory failure, morbid obesity, type 2 diabetes. She has elevated CRP and also D-dimer. She was continued on therapeutic dose of Lovenox. Her CT angio of the chest cannot be done given that her creatinine was 1.5. PHYSICAL EXAMINATION: GENERAL: When I examined her this afternoon, she was resting slightly propped up in bed, somewhat tachypneic, but no jaundice, cyanosis or thyromegaly. No jugular venous distension. No limb edema. VITAL SIGNS: Her heart rate was 87, blood pressure was 118/74, temperature was 97.9, respiratory rate was 90 and oxygen saturation was 92% on 2 liters of oxygen. HEAD, EYES, EARS, NOSE AND THROAT: Normocephalic, atraumatic. NECK: Supple. HEART: Showed normal first and second heart sounds. No gallop or murmur. CHEST: Shows central trachea, equal bilateral chest expansion, air entry, vesicular sounds. I really could not appreciate any crepitation or rhonchi. ABDOMEN: Markedly distended, soft, nontender. NEUROLOGIC: She is awake, alert, responding appropriately. All cranial nerves intact. She moves extremities without difficulty. EXTREMITIES: Her examination of the extremities showed no clubbing, cyanosis, but marked bilateral lower limb edema with erythema, mostly on the right side involving the dorsum of the right foot and anterior aspect of the right leg. Her intake and output are incompletely recorded. LABORATORY DATA: Her lab work this morning showed a serum sodium 139, potassium 4.5, chloride 101, bicarbonate 30, anion gap of 8, BUN 17, creatinine 1.5, estimated GFR was 36 mL per minute. Her glucose 171, calcium was 8.8. Her white cell count was 9000, hemoglobin 12, hematocrit 36, MCV 88 and platelet count 296,000 with normal manual differential. Urinalysis essentially unremarkable and toxic screen was unremarkable essentially negative. ASSESSMENT: 1. Acute hypoxic respiratory failure. 2. Bilateral lower extremity edema. 3. Bilateral lower extremity cellulitis, more so on the right than left. 4. Hypertension. 5. Hyperlipidemia. 6. Type 2 diabetes mellitus. 7. Hypothyroidism. 8. Depression and anxiety. 9. History of deep venous thrombosis and pulmonary embolism. PLAN: My plan is to discontinue her hydrochlorothiazide and losartan. I will start her on IV Lasix 60 mg IV twice a day, continue with ceftriaxone and also trimethoprim, sulfamethoxazole, although I am a bit reluctant given her impaired kidney function. I will continue with nebulized albuterol and Atrovent. I would repeat her blood gases and decide on further management accordingly. JANNY BOYD MD DR: ABHI/monica JOB#: [id number] / [id number]
[2020-09-15 22:41] VITALS: BP 99/66
[2020-09-15] MEDS: oxyCODONE IR 5 MG TABLET PO PRN (23:27)
[2020-09-16] MEDS: oxyCODONE IR 5 MG TABLET PO PRN ×5 (03:07→21:35)
[2020-09-16] MEDS: IPRATRPIUM/ALBUTEROL 0.5/2.5MG 3 ML NEBU. NEB SCH (04:28)
[2020-09-16 05:46] VITALS: BP 98/68
[2020-09-16] MEDS: LEVOTHYROXINE 50 MCG TABLET PO SCH (06:03)
[2020-09-16 07:02] LABS: HEMATOCRIT 34.5 % (36.0-47.0); HEMOGLOBIN 11.3 g/dL (12.0-15.5); RED CELL DISTRIBUTION WIDTH 14.3 % (11.5-14.5); WHITE BLOOD COUNT 9.6 x10^3/uL (4.0-11.0)
[2020-09-16 07:07] LABS: ALBUMIN 2.9 g/dL (3.4-5.0); ALBUMIN/GLOBULIN RATIO 0.7 (1.0-1.7); CALCIUM 8.7 mg/dL (8.5-10.1); CREATININE 2.3 mg/dL (0.6-1.0); GFR 21.9; POTASSIUM 4.3 mmol/L (3.5-5.1); TOTAL BILIRUBIN 0.4 mg/dL (0.2-1.0); TOTAL PROTEIN 7.2 g/dL (6.4-8.2)
[2020-09-16] MEDS: ASPIRIN CHEWABLE 81 MG TABLET. PO SCH (07:53)
[2020-09-16] MEDS: GABAPENTIN 300 MG CAPSULE. PO SCH ×2 (07:53→21:34)
[2020-09-16] MEDS: ENOXAPARIN ** NOTE DOSE ** SYRINGE SQ SCH (07:54)
[2020-09-16] MEDS: POTASSIUM CHLORIDE 20 MEQ TABLET.ER. PO SCH ×2 (07:54→21:34)
[2020-09-16] MEDS: LACTOBACILLUS RHAMNOSUS GG 1 CAPSULE. PO SCH ×2 (07:54→21:35)
[2020-09-16] MEDS ORDERED: FUROSEMIDE 40 MG/4 ML VIAL IVP SCH (09:00)
[2020-09-16 09:43] VITALS: BP 117/70
--- NOTE | 2020-09-16 13:18 | RAD ---
Indication: Dyspnea Technique: Static images are obtained of both lungs following IV administration of 5.5 mCi of 99 M te chnetium MAA. Comparison: Chest x-ray from same day Findings: Patchy perfusion defects are seen. Can not assess whether this is matched or mismatched given the lack of ventilation images. Cardiac silhouette is enlarged. Impression: 1. Overall low probability of pulmonary embolus. Electronically signed by: Brayden Amaya MD (09/16/2020 1:16 PM) [id number]
--- NOTE | 2020-09-16 14:10 | NUR ---
NURSING-GREWAL CATHETER INSERTION PER PHYSICIAN ORDER. 16 FR GREWAL INSERTED USING STERILE TECHNIQUE. IMMEDIATE STRAW URINE RETURN. SECUREMENT DEVICE APPLIED. PT TOLERATED WELL.
--- NOTE | 2020-09-16 15:13 | RAD ---
XR CHEST 1V INDICATION: HYPOXIA,SOA COMPARISON STUDY: 09/14/2020. FINDINGS: Lungs: Normal lung volume. No focal airspace disease. Normal pulmonary vasculature. Pleura: No pleural effusion or pneumothorax. Heart and Mediastinum: Stable cardiomediastinal silhouette and great vessels. IMPRESSION: No consolidation. Electronically signed by: Jean Echevarria MD (09/16/2020 3:10 PM) [id number]
[2020-09-16 15:37] VITALS: BP 167/73
--- NOTE | 2020-09-16 16:19 | PN ---
DATE: 09/16/2020 SUBJECTIVE: The patient is sitting on the edge of the bed, complaining of severe back pain, mostly in the lower lumbar area. She otherwise continues to complain of pain in her lower extremities, although the swelling is slightly better. PHYSICAL EXAMINATION: GENERAL: When I examined her, she was pale, but no jaundice or cyanosis. No lymphadenopathy, no thyromegaly. No jugular venous distension. No limb edema. VITAL SIGNS: Her heart rate was 104, blood pressure was 167/73, temperature 97.9, respiratory rate 20, and oxygen saturation was 95% on 2 liters of oxygen. HEAD, EYES, EARS, NOSE AND THROAT: Showed normocephalic, atraumatic. NECK: Supple. HEART: Showed normal first and second heart sounds. No gallop, rub or murmur. CHEST: Shows central trachea, equal bilateral chest expansion, air entry, vesicular sounds. I could not really appreciate any crepitation or rhonchi. ABDOMEN: Distended, soft, nontender. NEUROLOGIC: She is awake, alert, responding appropriately. All her cranial nerves are intact. She moves extremities without difficulty; however, she is complaining of severe pain in her feet and new onset of back pain, mostly in the lower lumbar area. Her intake and output are incompletely recorded. LABORATORY DATA: Her lab work this morning showed a white cell count 9600, hemoglobin 11, hematocrit 34, MCV 86 and platelet count 256,000. Her serum sodium was 135, potassium 4.3, chloride 97, bicarbonate 28, anion gap of 10, BUN 25, creatinine 2.3, estimated GFR was 22 mL per minute. Her glucose 174, calcium was 8.7. Total bilirubin, AST, ALT, alkaline phosphatase were normal. Total protein 7.2, albumin was 2.9. Her blood gases done yesterday showed a pH of 7.34, pCO2 of 56, pO2 of 68, and oxygen saturation was 92%. She has a V/Q scan done this morning, which obviously was done without ventilation showed patchy perfusion defects are seen. Cannot assess whether there is matched or mismatched given the lack of ventilation images, cardiac silhouette is enlarged. The impression overall is low probability for pulmonary embolism. We did actually bilateral lower extremity venous Doppler ultrasound, which showed no evidence of deep vein thrombosis on either lower extremity. ASSESSMENT: 1. Acute hypoxic respiratory failure. 2. Bilateral lower extremity edema. 3. Bilateral lower extremity cellulitis, more on the right than left. 4. Hypertension. 5. Hyperlipidemia. 6. Type 2 diabetes mellitus. 7. Hypothyroidism. 8. Depression and anxiety. 9. History of deep vein thrombosis and pulmonary embolism. 10. Acute kidney injury, likely to over diuresis. So, I will probably hold her Lasix altogether and repeat her labs again tomorrow. New onset of low back pain for which I will arrange for x-ray of the lumbar spine. Meanwhile, I will continue the IV antibiotic. I have discontinued her hydrochlorothiazide and losartan and I would also stop the Lasix. Meanwhile, continue with the other medication. She was treated with trimethoprim sulfamethoxazole that is notorious for causing acute interstitial nephritis; however, it was discontinued yesterday. Her blood sugar seems to be well controlled. JANNY BOYD MD DR: ABHI/monica JOB#: [id number] / [id number]
--- NOTE | 2020-09-16 16:39 | RAD ---
Exam: CT of lumbar spine without contrast INDICATION: Lower back pain TECHNIQUE: Sequential axial images through the lumbar spine obtained without IV contrast. Sagittal an d coronal reformatted images were reconstructed from the axial data and reviewed. Comparisons: None FINDINGS: Vertebral body heights and alignment are well-maintained. Fracture to the lumbar spine is not identified. Visualized paraspinal soft tissues are unremarkable. No significant spondylotic change in the lumbar spine. IMPRESSION: Negative CT lumbar spine for acute traumatic injury. Exposure: One or more of the following in the visualized dose reduction techniques were utilized for this examination: 1. Automated exposure control 2. Adjustment of the MA and/or KV according to patient size 3. Use of iterative of reconstructive technique Electronically signed by: Ta Talamantes MD (09/16/2020 4:36 PM) OBDULIA
[2020-09-16] MEDS: PATCH REMOVAL. MC SCH (21:00)
[2020-09-16] MEDS ORDERED: GABAPENTIN 100 MG CAPSULE. PO SCH (21:00)
[2020-09-16] MEDS: clonazePAM 0.5 MG TABLET PO SCH (21:34)
[2020-09-16] MEDS: OLANZapine 10 MG TABLET PO SCH (21:34)
[2020-09-16] MEDS: ATORVASTATIN CALCIUM 20 MG TABLET PO SCH (21:34)
[2020-09-16] MEDS: ENOXAPARIN 40 MG/0.4 ML SYRINGE. SQ SCH (21:35)
[2020-09-16] MEDS: GABAPENTIN 400 MG CAPSULE. PO SCH (21:35)
[2020-09-16 21:45] VITALS: BP 159/80
[2020-09-16 23:48] VITALS: BP 108/69
[2020-09-17] MEDS: LEVOTHYROXINE 50 MCG TABLET PO SCH (05:19)
[2020-09-17 05:30] VITALS: BP_SYST 110; BP_SYST 144; BP_DIAS 79; BP_DIAS 92
[2020-09-17 07:29] LABS: ALBUMIN 2.8 g/dL (3.4-5.0); ALBUMIN/GLOBULIN RATIO 0.6 (1.0-1.7); CREATININE 1.4 mg/dL (0.6-1.0); GFR 38.9; POTASSIUM 3.8 mmol/L (3.5-5.1); TOTAL BILIRUBIN 0.5 mg/dL (0.2-1.0); TOTAL PROTEIN 7.3 g/dL (6.4-8.2)
[2020-09-17] MEDS: GABAPENTIN 400 MG CAPSULE. PO SCH ×2 (08:09→21:30)
[2020-09-17] MEDS: POTASSIUM CHLORIDE 20 MEQ TABLET.ER. PO SCH ×2 (08:09→21:29)
[2020-09-17] MEDS: ASPIRIN CHEWABLE 81 MG TABLET. PO SCH (08:09)
[2020-09-17] MEDS: GABAPENTIN 300 MG CAPSULE. PO SCH ×2 (08:09→21:30)
[2020-09-17] MEDS: LACTOBACILLUS RHAMNOSUS GG 1 CAPSULE. PO SCH ×2 (08:09→21:29)
[2020-09-17] MEDS: oxyCODONE IR 5 MG TABLET PO PRN ×4 (08:10→21:31)
[2020-09-17] MEDS: ENOXAPARIN 40 MG/0.4 ML SYRINGE. SQ SCH ×2 (08:10→21:30)
[2020-09-17] MEDS: LIDOCAINE (700MG/PATCH) PATCH. TD SCH (08:13)
[2020-09-17] MEDS ORDERED: FUROSEMIDE 40 MG/4 ML VIAL IVP SCH (09:00)
[2020-09-17 10:44] VITALS: BP 107/55
--- NOTE | 2020-09-17 13:08 | PN ---
DATE: 09/17/2020 ATTENDING PHYSICIAN: Dr. Moy. SUBJECTIVE: The patient's back pain is still bothering her, not as severe, swelling and redness of the lower extremities have improved. OBJECTIVE FINDINGS: VITAL SIGNS: Blood pressure this morning is 107/55, pulse 90 and regular, temperature 98.3 degrees Fahrenheit, oxygen saturation 95% on 2 liters nasal cannula. Her weight is 402 pounds. HEENT: Head is without trauma. Pupils are reactive. Sclerae nonicteric. Oropharynx clear. NECK: No stridor. No adenopathy. LUNGS: Shallow respirations. CARDIOVASCULAR: Shows very distant heart tones. No gallops. ABDOMEN: Morbidly obese, protuberant. I cannot assess any organomegaly. Bowel sounds were normoactive. EXTREMITIES: Showed 3+ pitting edema extending up to her thighs. The redness and erythema of the lower extremity have improved and is receding. PERTINENT LABORATORY STUDIES: Her hemoglobin yesterday was 11.3 g/dL with white count of 9600. Chemistry panel this morning, creatinine is 1.4 mg/dL, nonfasting blood sugar 158, potassium 3.8 mEq per liter. ASSESSMENT: 1. A 54-year-old female with bilateral cellulitis of the legs. 2. Chronic low back pain. No evidence of surgical issues or herniated disk on CT of the lumbar spine. 3. Acute hypoxemic respiratory failure, improved. 4. Type 2 diabetes. 5. Morbid obesity. 6. Essential hypertension. 7. Hypothyroidism, on replacement. 8. History of deep venous thrombosis and pulmonary embolism. PLAN: 1. Continue antibiotics as ordered. She has most likely a Staphylococcus infection that has responded to Zyvox. 2. Increase diuresis the Lasix 80 mg IV b.i.d. I estimate at least 30-40 pounds of third space fluid. 3. 1200 mL daily fluid restriction. 4. Daily weights. 5. Serial chemistries starting tomorrow. 6. Potassium and magnesium replacement. 7. Continue antibiotics. MARILNY WARREN MD DR: DENNY/monica JOB#: [id number] / [id number] BREONNA Bangura MD
[2020-09-17] MEDS: FUROSEMIDE 40 MG/4 ML VIAL IVP SCH (14:00)
[2020-09-17 14:29] VITALS: BP 127/71
[2020-09-17 19:15] VITALS: BP 99/65
[2020-09-17] MEDS: PATCH REMOVAL. MC SCH (21:00)
[2020-09-17] MEDS ORDERED: POTASSIUM CHLORIDE 20 MEQ TABLET.ER. PO SCH (21:00)
[2020-09-17] MEDS: ATORVASTATIN CALCIUM 20 MG TABLET PO SCH (21:30)
[2020-09-17] MEDS: clonazePAM 0.5 MG TABLET PO SCH (21:30)
[2020-09-17] MEDS: OLANZapine 10 MG TABLET PO SCH (21:30)
[2020-09-18 00:15] VITALS: BP 122/79
[2020-09-18] MEDS: LEVOTHYROXINE 50 MCG TABLET PO SCH (05:48)
[2020-09-18 06:04] VITALS: BP 127/73
[2020-09-18] MEDS: LACTOBACILLUS RHAMNOSUS GG 1 CAPSULE. PO SCH ×2 (08:06→21:17)
[2020-09-18] MEDS: GABAPENTIN 400 MG CAPSULE. PO SCH ×2 (08:06→21:17)
[2020-09-18] MEDS: POTASSIUM CHLORIDE 20 MEQ TABLET.ER. PO SCH ×2 (08:06→21:18)
[2020-09-18] MEDS: GABAPENTIN 300 MG CAPSULE. PO SCH ×2 (08:06→21:18)
[2020-09-18] MEDS: ASPIRIN CHEWABLE 81 MG TABLET. PO SCH (08:06)
[2020-09-18] MEDS: FUROSEMIDE 40 MG/4 ML VIAL IVP SCH ×2 (08:07→14:00)
[2020-09-18] MEDS: ENOXAPARIN 40 MG/0.4 ML SYRINGE. SQ SCH ×2 (08:07→21:18)
[2020-09-18] MEDS: LIDOCAINE (700MG/PATCH) PATCH. TD SCH (08:08)
--- NOTE | 2020-09-18 09:03 | PN ---
DATE: 09/18/2020 ATTENDING PHYSICIAN: Dr. Moy. SUBJECTIVE: Less bloated and no new complaints. OBJECTIVE FINDINGS: VITAL SIGNS: Blood pressure this morning is 122/79. She is afebrile, pulse is normal. Oxygen saturation 95% on 2 liters. HEENT: Head is without trauma. Pupils are reactive. Sclerae nonicteric. Oropharynx clear. NECK: Supple. LUNGS: Clear. CARDIOVASCULAR: Showed regular heart tones. ABDOMEN: Soft, obese, no organomegaly. EXTREMITIES: Shows still 2+ edema. The erythema is improving and fading. SKIN: Otherwise warm and dry. ASSESSMENT: 1. A 54-year-old female with cellulitis of both legs, improving. 2. Chronic low back pain, stable. 3. Acute hypoxemic respiratory failure, improved. 4. Type 2 diabetes. 5. Morbid obesity, weighed at 401 today. 6. Essential hypertension. 7. Hypothyroidism, on replacement. 8. History of deep vein thrombosis. PLAN: 1. Continue antibiotics 1 more day. 2. Increase Lasix as noted. 3. Serial chemistries. 4. 1200 mL daily fluid restriction. 5. Daily weights. 6. Potassium and magnesium replacement. 7. Discontinue Oneal catheter. 8. Tentative discharge plans for tomorrow. MARILYN WARREN MD DR: DENNY/monica JOB#: [id number] / [id number]
[2020-09-18] MEDS: oxyCODONE IR 5 MG TABLET PO PRN ×3 (09:57→18:23)
[2020-09-18 11:17] VITALS: BP 111/58
[2020-09-18 15:59] VITALS: BP 147/84
[2020-09-18 19:11] VITALS: BP 123/77
[2020-09-18] MEDS: PATCH REMOVAL. MC SCH (21:00)
[2020-09-18] MEDS: ATORVASTATIN CALCIUM 20 MG TABLET PO SCH (21:17)
[2020-09-18] MEDS: OLANZapine 10 MG TABLET PO SCH (21:17)
[2020-09-18] MEDS: clonazePAM 0.5 MG TABLET PO SCH (21:17)
--- NOTE | 2020-09-18 21:30 | NUR ---
PT placed call light on for RN. PT stated she lost a tooth. When asked how that happened, PT stated she hit her chin on the bed rail while trying to adjust in bed. Photo taken and moistened gauze applied to gumline. Pressure applied. PT stopped bleeding shortly thereafter.
[2020-09-19 05:34] VITALS: BP 147/83
[2020-09-19] MEDS: LEVOTHYROXINE 50 MCG TABLET PO SCH (05:47)
[2020-09-19 06:17] LABS: CALCIUM 8.7 mg/dL (8.5-10.1); CREATININE 1.2 mg/dL (0.6-1.0); GFR 46.5; POTASSIUM 3.4 mmol/L (3.5-5.1)
[2020-09-19] MEDS: ENOXAPARIN 40 MG/0.4 ML SYRINGE. SQ SCH (08:03)
[2020-09-19] MEDS: LACTOBACILLUS RHAMNOSUS GG 1 CAPSULE. PO SCH (08:04)
[2020-09-19] MEDS: FUROSEMIDE 40 MG/4 ML VIAL IVP SCH (08:04)
[2020-09-19] MEDS: ASPIRIN CHEWABLE 81 MG TABLET. PO SCH (08:04)
[2020-09-19] MEDS: GABAPENTIN 400 MG CAPSULE. PO SCH (08:04)
[2020-09-19] MEDS: oxyCODONE IR 5 MG TABLET PO PRN (08:04)
[2020-09-19] MEDS: GABAPENTIN 300 MG CAPSULE. PO SCH (08:04)
[2020-09-19] MEDS: POTASSIUM CHLORIDE 20 MEQ TABLET.ER. PO SCH (08:05)
[2020-09-19] MEDS: LIDOCAINE (700MG/PATCH) PATCH. TD SCH (08:11)
--- NOTE | 2020-09-19 09:55 | DS ---
DATE OF DISCHARGE: 09/19/2020 ATTENDING PHYSICIAN: Dr. Moy. FINAL DISCHARGE DIAGNOSES: 1. Cellulitis of both legs improved. 2. Chronic low back pain. 3. Acute hypoxemic respiratory failure, improved. 4. Type 2 diabetes. 5. Morbid obesity, weight in excess of 400 pounds. 6. Essential hypertension. 7. Hypothyroidism, on replacement. 8. History of deep vein thrombosis in the past. HISTORY AND PHYSICAL: The patient is a 54-year-old female with cellulitis and shortness of breath, admitted with bilateral cellulitis of the lower extremities. She is also volume overloaded. She was admitted for further treatment and evaluation. PHYSICAL EXAMINATION: Please see the dictated note. PERTINENT LABORATORY AND X-RAY STUDIES: Admission hemoglobin was 12.3 g/dL with a white count of 8500. Chemistry panel was done on a daily basis via diuresis prior to discharge, her creatinine was stable at 1.2 mg/dL, BUN is 18, potassium 3.4 mEq, sodium 142. Nonfasting blood sugar was 139. COURSE IN THE HOSPITAL: The patient was admitted. She was treated with 6 days of intravenous Zyvox with marked improvement. We did increase her diuretics to 80 Lasix b.i.d. along with potassium and magnesium replacement and daily weights and fluid restriction. I suggest to her that she continue her Lasix and potassium and to weigh herself and to try to keep within plus or minus 1 pound of her dry weight. Her sugars were better. On the sixth hospital day, she was ready for discharge. I suggested a followup visit with Dr. Jasso in 2 weeks' time. In addition, for short-term plans, I strongly recommended that she look into consideration of laparoscopic gastric bypass surgery for her obesity. She does have [employer] coverage whether or not they will cover elective surgery remains to be seen. She will look into that after discharge. Therefore, I wrote scripts for Lasix 80 daily with instructions to take a second and a third dose perhaps if the weight goes up. In addition, she will continue her potassium, K-Dur 20 mEq daily, 5 more days of cephalexin 500 mg p.o. t.i.d., and Percocet 10/325 one every 6 hours p.r.n. back pain. She will continue her Lipitor 40 mg daily, clonazepam b.i.d., Synthroid 50 mcg daily, metformin 1000 mg b.i.d., Zyprexa 20 mg at bedtime, Benicar 40/25 daily and potassium supplementation. For now, we have held the Neurontin. The patient was then discharged from our hospital in stable condition with instructions for followup visit with the PCP in 2 weeks' time. Total discharge time spent 41 minutes. MARILYN WARREN MD DR: DENNY/monica JOB#: [id number] / [id number] BREONNA Bangura MD
--- NOTE | 2020-09-19 10:06 | NUR ---
PATIENT IS DISCHARGED HOME. DISCHARGED INSTRUCTIONS REVIEWED, PATIENT VERBALIZED UNDERSTANDING. PATIENT LEFT ROOM VIA W/C ACCOMP BY STAFF . PATIENT TAKEN HOME BY FAMILY MEMBER VIA PERSONAL VEHICLE.
== END 2020-09-19 10:00 | disposition home or self-care (01) | DRG 602 ==
LOC: ER 20:43 → 1 SOUTH 23:19
PROVIDERS: ADMIT Internal Medicine; ATTEND Internal Medicine
DX: L03.116 Cellulitis of left lower limb (principal); J96.01 Acute respiratory failure with hypoxia; N17.0 Acute kidney failure with tubular necrosis; N10 Acute pyelonephritis; Z68.44 Body mass index [BMI] 60.0-69.9, adult; L03.115 Cellulitis of right lower limb; E03.9 Hypothyroidism, unspecified; E11.40 Type 2 diabetes mellitus with diabetic neuropathy, unspecified; E66.01 Morbid (severe) obesity due to excess calories; M15.9 Polyosteoarthritis, unspecified; K57.30 Diverticulosis of large intestine without perforation or abscess without bleeding; E78.5 Hyperlipidemia, unspecified; E87.70 Fluid overload, unspecified; F32.9 Major depressive disorder, single episode, unspecified; F41.9 Anxiety disorder, unspecified; G89.29 Other chronic pain; G47.33 Obstructive sleep apnea (adult) (pediatric); I10 Essential (primary) hypertension; Z86.718 Personal history of other venous thrombosis and embolism; Z90.710 Acquired absence of both cervix and uterus; Z86.711 Personal history of pulmonary embolism; Z79.899 Other long term (current) drug therapy; Z79.84 Long term (current) use of oral hypoglycemic drugs; Z90.89 Acquired absence of other organs; Z87.440 Personal history of urinary (tract) infections; Z88.1 Allergy status to other antibiotic agents; Z91.040 Latex allergy status
CPT/HCPCS: 36415; 36600; 71045; 72131; 78580; 80048; 80053; 80076; 80307; 81001; 82550; 82803; 82947; 83690; 83735; 83880; 84443; 84484; 85025; 85027; 85379; 85610; 85730; 86140; 87040; 90471; 90714; 93005; 93970; 94640; 96365; 96366; 96372; 96374; 96375; A9540; J0696; J1650; J1940; J2020; J2270; 99285-25

== ENCOUNTER 2020-10-11 09:18 | Inpatient (IN) | payer BC ==
[~2020-10-11] VITALS: Ht 167.6 cm; Wt 174.6 kg
[~2020-10-11 09:18] MED LIST changes: +ATOR40TA PO; +CLON0.5T4 PO; +GABA-586 PO; +LEVO50TA5 PO; +METF10007 PO; +OLAN20TA3 PO; +OLME1TAB25 PO; +POTA-163 PO; +TORS100T3 PO
--- NOTE | 2020-10-11 09:30 | PHYS DOC ---
Past History Past Medical History: Anxiety, Arthritis, Depression, Diabetes, DVT, Hypertension, Sciatica, Other Past Surgical History: Hysterectomy, Tonsillectomy Smoking: Non-smoker Alcohol Use: None Drug Use: None General Adult HPI: HPI: 54-year-old female past medical history diabetes, hypothyroidism, morbid obesity, chronic low back pain, history of DVT, hypertension with recent discharge from the hospital on September 19 for bilateral lower extremity cellulitis, presents to the ED with complaints of cough and shortness of breath for the past week, tested positive for Covid 4 days ago. Reports no history of COPD, asthma or tobacco abuse but states she has been diagnosed with " bronchitis," in the past. Is not on any home oxygen. EMR was reviewed patient with hypoxic respiratory failure and prior hospital admission with low probability VQ scan beginning of September. Review of Systems: Review of Systems: Constitutional: Denies fever or chills Eyes: Denies change in visual acuity HENT: Denies nasal congestion or sore throat Respiratory: Denies hemoptysis or increased work of breathing Cardiovascular: Denies chest pain or edema GI: Denies abdominal pain, nausea, vomiting, bloody stools or diarrhea : Denies dysuria or hematuria Musculoskeletal: Denies back pain or joint pain or unilateral leg swelling Integument: Denies rash or blisters Neurologic: Denies headache, focal weakness or sensory changes Endocrine: Denies polyuria or polydipsia Lymphatic: Denies swollen glands Psychiatric: Denies depression or anxiety Allergies: Allergies: Allergies Coded Allergies Type Severity Reaction Last Updated Verified ciprofloxacin Allergy Unknown 04/22/20 Yes latex Allergy Unknown 04/22/20 Yes Physical Exam: PE: Constitutional: Well developed, well nourished, no acute distress, non-toxic appearance, obese HENT: Normocephalic, atraumatic, Eyes: EOMI, conjunctiva normal, no discharge. Neck: Normal range of motion, supple, Cardiovascular: S1/2 present, regular rhythm Lungs & Thorax: Speaking in full sentences, bilateral equal chest rise, no tachypnea or increased work of breathing, no wheezing/rales/crackles, no retractions Abdomen: soft, no tenderness, Skin: Warm, dry, no erythema, no rash. [] Back: No tenderness, no CVA tenderness. [] Extremities: No tenderness, no cyanosis, no unilateral lower extremity edema Neurologic: Alert and oriented X 3, normal motor function, normal sensory function, no focal deficits noted. [] Psychologic: Affect normal, judgement normal, mood normal. [] EKG: EKG: Sinus rhythm 87 bpm, no axis deviation, normal intervals, T wave inversion V2, no ST elevations or ST depressions Radiology/Procedures: Radiology/Procedures: IMAGING REPORT Signed PATIENT: NIKKI MARAVILLA ACCOUNT: [id number] : 1965 LOCATION: ER AGE: 54 SEX: F EXAM STATUS: REG ER ORD. PHYSICIAN: JOSE RAMON DWYER DO REASON: SHORTNESS OF BREATH PROCEDURE: PORTABLE CHEST 1V Study: XR CHEST 1V Indication: Shortness of breath. Comparison: 09/16/2020 Findings: Unchanged enlargement of the cardiomediastinal silhouette. Similar configuration of the chayo. Ill-defined airspace infiltrates on the right more so than left are more noticeable from the prior. Background increased interstitial markings. No large effusion is apparent or pneumothorax. Impression: Ill-defined infiltrates on the right more so than left on background of increased interstitial markings and enlargement of the cardiomediastinal silhouette. The latter two findings were present previously but the infiltrates are new. Interstitial/alveolar edema is possible as is an atypical infectious process. Recommend correlation with patient's symptoms to help differentiate. Electronically signed by: ROSALBA JARQUIN MD (10/11/2020 10:42 AM) [id number] DICTATED AND SIGNED BY: ROSALBA JARQUIN MD DATE: 10/11/20 1040 CC: JOSE RAMON DWYER DO; BREONNA GERBER MD ~MTH0 0 Heart Score: C/O Chest Pain: No Risk Factors: Risk Factors: DM, Current or recent (<one month) smoker, HTN, HLP, family history of CAD, obesity. Risk Scores: Score 0 - 3: 2.5% MACE over next 6 weeks - Discharge Home Score 4 - 6: 20.3% MACE over next 6 weeks - Admit for Clinical Observation Score 7 - 10: 72.7% MACE over next 6 weeks - Early Invasive Strategies Course & Med Decision Making: Course & Med Decision Making Pertinent Labs and Imaging studies reviewed. (See chart for details) Concern for Covid with superimposed pneumonia with hypoxemia requiring 3 L nasal cannula. Patient with elevated D-dimer 09/14 with low probability VQ scan 09/16. Patient with CKD. Hypoxia explained with Covid and superimposed infiltrates. BNP 7 -may benefit from cardiac echo to evaluate ejection fraction. RT unable to obtain blood gas. Antibiotics initiated in the ED. Will admit for further medical management. Patient requiring 3 L nasal cannula. Patient stable at time of admission and agrees with this plan. I have spoken with the patient and/or caregivers. I have explained the patient's condition, diagnosis and treatment plan based on the information available to me at this time. I have answered the patient's and/or caregivers questions and answered any concerns. The patient and/or caregivers have as good an understanding of the patient's diagnosis, condition and treatment plan as can be expected at this point. The patient has been stabilized within the capability of the emergency department. The patient will be transported for further care and management or will be moved to an observation or inpatient service. I have communicated with the staff or medical practitioner taking over this patient's care. Charly Disclaimer: Charly Disclaimer: This electronic medical record was generated, in whole or in part, using a voice recognition dictation system. Departure Departure: Impression: Primary Impression: Hypoxemia requiring supplemental oxygen Additional Impressions: COVID-19 Pneumonia Chronic kidney disease Disposition: ADMITTED INPT THIS HOSP Admitting Physician: Cori Moy Condition: STABLE Referrals: BREONNA GERBER MD (PCP) JOSE RAMON DWYER DO Oct 11, 2020 09:30
[2020-10-11 10:17] LABS: BASO % 0 % (0-3); EOS % 1 % (0-3); HEMATOCRIT 38.2 % (36.0-47.0); HEMOGLOBIN 12.5 g/dL (12.0-15.5); LYMPH # 0.9 x10^3/uL (1.0-4.8); LYMPH % 30 % (24-48); MEAN CORPUSCULAR HEMOGLOBIN 28 pg (25-35); MEAN CORPUSCULAR HGB CONC 33 g/dL (31-37); MEAN CORPUSCULAR VOLUME 86 fL (79-100); MONO # 0.3 x10^3/uL (0.0-1.1); MONO % 11 % (0-9); NEUT # 1.8 x10^3uL (1.8-7.7); NEUT % 58 % (31-73); PLATELET COUNT 181 x10^3/uL (140-400); RED BLOOD COUNT 4.43 x10^6/uL (3.50-5.40); RED CELL DISTRIBUTION WIDTH 14.4 % (11.5-14.5); WHITE BLOOD COUNT 3.2 x10^3/uL (4.0-11.0)
[2020-10-11 10:24] LABS: CALCIUM 8.9 mg/dL (8.5-10.1); CREATININE 1.2 mg/dL (0.6-1.0); GFR 46.5
[2020-10-11 10:36] LABS: ALBUMIN 3.1 g/dL (3.4-5.0); ALBUMIN/GLOBULIN RATIO 0.7 (1.0-1.7); TOTAL BILIRUBIN 0.3 mg/dL (0.2-1.0); TOTAL PROTEIN 7.7 g/dL (6.4-8.2)
--- NOTE | 2020-10-11 10:36 | EKG ---
[facility] ED [facility] [place] [id number] Test Date: 2020-10-11 Test Time: 09:44:54 Pat Name: NIKKI MARAVILLA Department: Room: Gender: F Pharmaceutical Operator: : 1965 Requested By: JOSE RAMON DWYER Order Number: [id number] Reading MD: Measurements Intervals [place] Rate: 87 P: 36 NM: 166 QRS: 17 QRSD: 90 T: 48 QT: 362 QTc: 436 Interpretive Statements SINUS RHYTHM NORMAL ECG RI6.02 No previous ECG available for comparison
--- NOTE | 2020-10-11 10:44 | RAD ---
Study: XR CHEST 1V Indication: Shortness of breath. Comparison: 09/16/2020 Findings: Unchanged enlargement of the cardiomediastinal silhouette. Similar configuration of the chayo. Ill-defined airspace infiltrates on the right more so than left are more noticeable from the prior. B ackground increased interstitial markings. No large effusion is apparent or pneumothorax. Impression: Ill-defined infiltrates on the right more so than left on background of increased interstitial markin gs and enlargement of the cardiomediastinal silhouette. The latter two findings were present previous ly but the infiltrates are new. Interstitial/alveolar edema is possible as is an atypical infectious process. Recommend correlation with patient's symptoms to help differentiate. Electronically signed by: ROSALBA JARQUIN MD (10/11/2020 10:42 AM) [id number]
[2020-10-11] MEDS ORDERED: VANCOMYCIN PER PHARMACY MC ONE (10:45)
[2020-10-11] MEDS ORDERED: PIPERACILLIN/TAZOBACTAM 4.5 GM in IV NORMAL SALINE 50ML 50 ML IV ONE (10:45)
[2020-10-11] MEDS ORDERED: IV NORMAL SALINE 500ML 500 ML ONE ×2 (10:47→10:53)
[2020-10-11] MEDS ORDERED: IV NORMAL SALINE 50ML 50 ML ONE (10:47)
[2020-10-11] MEDS ORDERED: VANCOMYCIN 1 GM VIAL. ONE (10:47)
[2020-10-11] MEDS ORDERED: PIPERACILLIN/TAZOBACTAM 4.5 GM VIAL IV ONE (10:48)
[2020-10-11] MEDS ORDERED: VANCOMYCIN 2 GM in IV NORMAL SALINE 500ML 500 ML IV ONE (11:15)
[2020-10-11 12:26] LABS: INFLUENZA A PATIENT NEGATIVE (NEGATIVE); INFLUENZA B PATIENT NEGATIVE (NEGATIVE)
[2020-10-11 12:28] LABS: BACTERIA,URINE FEW /HPF (0-FEW); BILIRUBIN,URINE NEG (NEG); CLARITY,URINE CLEAR; COLOR,URINE YELLOW; GLUCOSE,URINE NEG (NEG); NITRITE,URINE NEG (NEG); RBC,URINE 0 /HPF (0-2); SQUAMOUS EPITHELIAL CELL,UR FEW /LPF; UROBILINOGEN,URINE 0.2 mg/dL (0.2 mg/dL); WBC,URINE OCC /HPF (0-4)
[2020-10-11 14:36] VITALS: BP 140/88
[2020-10-11] MEDS ORDERED: FLUO40CA2 PO (14:58)
[2020-10-11] MEDS ORDERED: FURO80TA3 PO (14:58)
[2020-10-11] MEDS ORDERED: AMLO-187 PO (14:58)
[2020-10-11] MEDS ORDERED: OLAN10TA9 PO (14:58)
[2020-10-11] MEDS ORDERED: DEXTROSE 50% 25 GM / 50ML DISP.SYRIN. IV PRN (15:45)
[2020-10-11] MEDS ORDERED: DEXAMETHASONE SOD PHOS 10 MG/ML VIAL. IVP ONE (15:45)
[2020-10-11] MEDS: traMADol 50 MG TABLET PO PRN (17:43)
[2020-10-11] MEDS: INSULIN LISPRO 300 UNITS/3 ML VIAL. SQ SCH (17:45)
[2020-10-11 20:03] VITALS: BP 114/75
[2020-10-11] MEDS: ATORVASTATIN CALCIUM 20 MG TABLET PO SCH (20:37)
[2020-10-11] MEDS: OLANZapine 10 MG TABLET PO SCH (20:37)
[2020-10-11] MEDS: clonazePAM 1 MG TABLET PO SCH (20:38)
[2020-10-11] MEDS: ENOXAPARIN ** NOTE DOSE ** SYRINGE SQ SCH (20:38)
[2020-10-11] MEDS: POTASSIUM CHLORIDE 20 MEQ TABLET.ER. PO SCH (20:38)
[2020-10-11] MEDS ORDERED: OLANZapine 10 MG TABLET PO SCH (21:00)
[2020-10-11 23:27] VITALS: BP 122/84
[2020-10-12] MEDS: traMADol 50 MG TABLET PO PRN ×4 (02:05→21:01)
[2020-10-12] MEDS: LEVOTHYROXINE 50 MCG TABLET PO SCH (05:44)
[2020-10-12 06:07] VITALS: BP 138/86
[2020-10-12 07:25] LABS: BASO % 0 % (0-3); EOS % 0 % (0-3); HEMATOCRIT 38.7 % (36.0-47.0); HEMOGLOBIN 12.6 g/dL (12.0-15.5); LYMPH # 0.7 x10^3/uL (1.0-4.8); LYMPH % 35 % (24-48); MEAN CORPUSCULAR HEMOGLOBIN 28 pg (25-35); MEAN CORPUSCULAR HGB CONC 33 g/dL (31-37); MEAN CORPUSCULAR VOLUME 86 fL (79-100); MONO # 0.3 x10^3/uL (0.0-1.1); MONO % 13 % (0-9); NEUT % 51 % (31-73); PLATELET COUNT 173 x10^3/uL (140-400); RED BLOOD COUNT 4.48 x10^6/uL (3.50-5.40); RED CELL DISTRIBUTION WIDTH 13.7 % (11.5-14.5)
[2020-10-12 07:30] LABS: ALBUMIN 3.1 g/dL (3.4-5.0); ALBUMIN/GLOBULIN RATIO 0.7 (1.0-1.7); CALCIUM 9.1 mg/dL (8.5-10.1); CREATININE 1.3 mg/dL (0.6-1.0); GFR 42.4; POTASSIUM 4.6 mmol/L (3.5-5.1); TOTAL BILIRUBIN 0.3 mg/dL (0.2-1.0); TOTAL PROTEIN 7.8 g/dL (6.4-8.2)
[2020-10-12] MEDS: INSULIN LISPRO 300 UNITS/3 ML VIAL. SQ SCH ×3 (08:00→17:00)
[2020-10-12] MEDS: DEXAMETHASONE SOD PHOS 4 MG/ML VIAL. IVP SCH (08:24)
[2020-10-12] MEDS: metFORMIN 500 MG TABLET PO SCH (08:25)
[2020-10-12] MEDS: hydroCHLOROthiazide 25 MG TABLET PO SCH (08:25)
[2020-10-12] MEDS: FLUoxetine HCL 20 MG CAPSULE PO SCH (08:25)
[2020-10-12] MEDS: FUROSEMIDE 80 MG TABLET PO SCH (08:25)
[2020-10-12] MEDS: LOSARTAN 50 MG TABLET. PO SCH (08:26)
[2020-10-12] MEDS: amLODIPine BESYLATE 10 MG TABLET PO SCH (08:26)
[2020-10-12] MEDS: POTASSIUM CHLORIDE 20 MEQ TABLET.ER. PO SCH ×2 (08:27→21:02)
[2020-10-12] MEDS: ENOXAPARIN ** NOTE DOSE ** SYRINGE SQ SCH ×2 (08:27→21:01)
[2020-10-12 08:55] LABS: % ATYL 11 % (0-0); % BANDS 10 % (0-9); % LYMPHS 19 % (24-48); % MONOS 19 % (0-10); % MYELOS 1 % (0-0); % SEGS 40 % (35-66)
[2020-10-12 08:57] LABS: PLT ESTIMATE ADEQUATE (ADEQUATE)
[2020-10-12 09:03] LABS: OVALOCYTES OCC
[2020-10-12 09:04] LABS: TEAR DROP CELLS OCC
[2020-10-12 10:00] VITALS: BP 135/88
[2020-10-12] MEDS ORDERED: AZITHROMYCIN 500 MG in IV NORMAL SALINE 250ML 250 ML IV ONE (12:30)
--- NOTE | 2020-10-12 13:37 | HP ---
ADMIT DATE: 10/11/2020 HISTORY OF PRESENT ILLNESS: The patient is a 54-year-old female patient, who was brought to the Emergency Room with a complaint of cough and shortness of breath for the past week. She was tested positive for COVID 4 days prior to arrival to the Emergency Room. She apparently was discharged from the hospital on 09/19 for bilateral lower extremity cellulitis. The patient stated that she was exposed on 09/25/2020 and started her symptoms on 10/01/2020, started with cough, headache, body ache, shortness of breath, cough with also some chills or rigors. She lost her taste and smell. She was at home; however, yesterday she became confused and therefore, she was brought to the Emergency Room for further evaluation and treatment. She was extensively investigated in the Emergency Room and has had lab work and x-rays. Her x-ray showed that the patient has ill-defined infiltrate in the right, more so than left on a background of increased interstitial marking and enlargement of the cardiomediastinal silhouette. The latter 2 findings were present previously, but the infiltrates are new. Interstitial alveolar edema as possible as is an atypical infection. The patient was admitted with acute hypoxic respiratory failure, likely COVID-19 pneumonia as well as community-acquired pneumonia and chronic kidney disease. PAST MEDICAL HISTORY: Significant for hypertension, hyperlipidemia, type 2 diabetes mellitus, hypothyroidism, has a history of DVT and pulmonary emboli as well as obstructive sleep apnea, although she said she has sleep study and did not approve it. She is also known to have depression and anxiety. PAST SURGICAL HISTORY: Significant for right foot surgery, right knee arthroscopic surgery, tonsillectomy, adenoidectomy, total abdominal hysterectomy, bilateral salpingo-oophorectomy. ALLERGIES: SHE IS ALLERGIC TO CIPRO AND LATEX. FAMILY HISTORY: Significant for the fact that she has 2 sisters, older. Her oldest sister has type 2 diabetes, hypertension. She has also PCI and multiple stent deployment. Second sister seems to be healthy. Her brother is younger and also seemingly healthy. Her father at age of 78 because of lung cancer. Mother at age of 68 because of COPD. SOCIAL HISTORY: She is , has a daughter and 2 sons. She never smoked, drinks alcohol occasionally. Does not use any illicit drugs. She is a retired [employer]. MEDICATIONS: She is currently on following medications: She is on atorvastatin 40 mg at bedtime, amlodipine 10 mg once a day, olmesartan hydrochlorothiazide 40/25 one tablet once a day, clonazepam 0.5 mg at bedtime, fluoxetine 40 mg daily, Zyprexa 20 mg at bedtime, olanzapine 10 mg at bedtime, potassium chloride 20 mEq twice a day, furosemide 80 mg daily, metformin 1000 mg once a day, levothyroxine sodium 50 mcg once a day. REVIEW OF SYSTEMS: As per history of present illness. PHYSICAL EXAMINATION: GENERAL: On arrival to the Emergency Room, the patient looked well and was clearly in no apparent respiratory distress. There is no pallor, jaundice, cyanosis or thyromegaly. No jugular venous distention. No lower limb edema. VITAL SIGNS: Her heart rate was 89, blood pressure 147/83, temperature was 98.9, respiratory rate was 26 and oxygen saturation was 96% on 3 liters of oxygen by nasal cannula. HEAD, EYES, EARS, NOSE AND THROAT: Showed normocephalic, atraumatic. NECK: Supple. HEART: Showed normal first and second heart sounds. No gallop or murmur. CHEST: Clear to auscultation. No crepitation or rhonchi. ABDOMEN: Distended, soft, nontender. NEUROLOGIC: She was awake, alert, responding appropriately. All her cranial nerves intact. EXTREMITIES: She moves all extremities without difficulty. LABORATORY DATA: Her lab work on admission showed a white cell count of 3200, hemoglobin 12.5, hematocrit 38, MCV 86 and platelet count of 181,000 with normal manual differential. Her chemistry showed a serum sodium 134, potassium 4, chloride 96, bicarbonate 30, anion gap of 8, BUN 20, creatinine 1.2, estimated GFR was 46 mL per minute. Her glucose 174. Lactic acid was 2.3, calcium was 8.9. Total bilirubin, AST, ALT, alkaline phosphatase were normal. Her total protein 7.7, albumin was 3.1. Her D-dimer was 0.88. Urinalysis showed the urine was yellow, clear with a pH of 6, specific gravity 1.015. The urine was negative for protein, glucose, ketones, blood, nitrite and leukocyte esterase. There are no rbc's, no wbc's. His influenza A and B were negative. Her chest x-ray showed the patient has ill-defined infiltrate on the right more so than the left on the background of increased interstitial marking and enlargement of the cardiomediastinal silhouette, the latter 2 findings were present previously, but infiltrates are new. Interstitial alveolar edema is possible as is an atypical infectious process. Recommend correlation with the patient's symptoms to help differentiate. The patient was admitted with acute hypoxic respiratory failure, COVID-19 pneumonia, community-acquired pneumonia. She has multiple other medical problems including: A. Hypertension. B. Hyperlipidemia. C. Type 2 diabetes mellitus. D. Hypothyroidism. E. DVT and PE. The patient was started on dexamethasone 10 mg IV once. She also had Flagyl and Zosyn. We have switched her to IV Levaquin and reconciled all her medications. JANNY BOYD MD DR: ABHI/monica JOB#: [id number] / [id number]
[2020-10-12 14:32] VITALS: BP_SYST 129; BP_SYST 136; BP_DIAS 76; BP_DIAS 89
[2020-10-12] MEDS ORDERED: LOPERAMIDE 2 MG/15 ML ORAL SUSP. PEG PRN (19:15)
[2020-10-12 19:37] VITALS: BP 138/82
[2020-10-12] MEDS: ATORVASTATIN CALCIUM 20 MG TABLET PO SCH (21:02)
[2020-10-12] MEDS: OLANZapine 10 MG TABLET PO SCH (21:02)
[2020-10-12] MEDS: clonazePAM 1 MG TABLET PO SCH (21:02)
[2020-10-12] MEDS: LOPERAMIDE 2 MG CAPSULE PO PRN (21:29)
[2020-10-12 23:22] VITALS: BP 127/82
[2020-10-13] MEDS: LEVOTHYROXINE 50 MCG TABLET PO SCH (04:55)
[2020-10-13 05:30] VITALS: BP 146/80
[2020-10-13 07:10] LABS: BASO % 0 % (0-3); EOS % 0 % (0-3); HEMATOCRIT 37.1 % (36.0-47.0); HEMOGLOBIN 12.1 g/dL (12.0-15.5); LYMPH % 18 % (24-48); MEAN CORPUSCULAR HEMOGLOBIN 28 pg (25-35); MEAN CORPUSCULAR HGB CONC 33 g/dL (31-37); MEAN CORPUSCULAR VOLUME 86 fL (79-100); MONO # 0.6 x10^3/uL (0.0-1.1); MONO % 12 % (0-9); NEUT # 3.7 x10^3uL (1.8-7.7); NEUT % 70 % (31-73); PLATELET COUNT 177 x10^3/uL (140-400); RED BLOOD COUNT 4.31 x10^6/uL (3.50-5.40); RED CELL DISTRIBUTION WIDTH 13.8 % (11.5-14.5); WHITE BLOOD COUNT 5.3 x10^3/uL (4.0-11.0)
--- NOTE | 2020-10-13 07:23 | PN ---
DATE: 10/12/2020 SUBJECTIVE: The patient is resting slightly propped up in bed, in no apparent distress. She continued to have cough, is mostly dry. Denied any chest pain or shortness of breath. Her oxygen saturation was 97% on 3 liters of oxygen. PHYSICAL EXAMINATION: GENERAL: When I examined her this morning, she looked well and was clearly in no apparent respiratory distress. No pallor, jaundice, cyanosis or thyromegaly. No jugular venous distension. No limb edema. VITAL SIGNS: Her heart rate was 90, blood pressure was 140/88, temperature was 99.1, respiratory rate was 22 and oxygen saturation was 96% on 3 liters of oxygen. HEAD, EYES, EARS, NOSE AND THROAT: Showed normocephalic and atraumatic. NECK: Supple. HEART: Showed normal first and second heart sounds. No gallop or murmur. CHEST: Clear to auscultation. No crepitation or rhonchi. ABDOMEN: Distended, soft, nontender. NEUROLOGIC: She was awake, alert, responding appropriately. All cranial nerves intact. She moves extremities without difficulty. LABORATORY DATA: Her lab work this morning showed a white cell count of 2000, hemoglobin 13, hematocrit 39, MCV 86 and platelet count of 173,000. Her serum sodium was 137, potassium 4.6, chloride 101, bicarbonate 28, anion gap of 8, BUN 20, creatinine 1.3, estimated GFR was 42 mL per minute. Her glucose 229, calcium was 9.1. Total bilirubin, AST, ALT, alkaline phosphatase were normal. Total protein 7.8, albumin 3.1. ASSESSMENT: 1. In summary, this is a 54-year-old female patient, who was admitted with acute hypoxic respiratory failure. 2. COVID-19 pneumonia. 3. Community-acquired pneumonia. 4. The patient has multiple other medical problems including: A. Type 2 diabetes mellitus. B. Hypertension. C. Hyperlipidemia. D. Hypothyroidism. E. Deep vein thrombosis and pulmonary embolism. F. Chronic kidney disease. PLAN: My plan is to discontinue her hydrochlorothiazide for now. Repeat all her lab works again tomorrow. JANNY BOYD MD DR: ABHI/monica JOB#: [id number] / [id number]
[2020-10-13 07:32] LABS: ALBUMIN 3.2 g/dL (3.4-5.0); ALBUMIN/GLOBULIN RATIO 0.7 (1.0-1.7); CALCIUM 8.8 mg/dL (8.5-10.1); CREATININE 1.2 mg/dL (0.6-1.0); GFR 46.5; POTASSIUM 3.9 mmol/L (3.5-5.1); TOTAL BILIRUBIN 0.3 mg/dL (0.2-1.0); TOTAL PROTEIN 7.5 g/dL (6.4-8.2)
[2020-10-13] MEDS: FUROSEMIDE 80 MG TABLET PO SCH (07:57)
[2020-10-13] MEDS: DEXAMETHASONE SOD PHOS 4 MG/ML VIAL. IVP SCH (07:57)
[2020-10-13] MEDS: FLUoxetine HCL 20 MG CAPSULE PO SCH (07:58)
[2020-10-13] MEDS: metFORMIN 500 MG TABLET PO SCH (07:58)
[2020-10-13] MEDS: LOSARTAN 50 MG TABLET. PO SCH (07:58)
[2020-10-13] MEDS: AZITHROMYCIN 250 MG TABLET. PO SCH (07:59)
[2020-10-13] MEDS: POTASSIUM CHLORIDE 20 MEQ TABLET.ER. PO SCH ×2 (07:59→20:30)
[2020-10-13] MEDS: hydroCHLOROthiazide 25 MG TABLET PO SCH (07:59)
[2020-10-13] MEDS: amLODIPine BESYLATE 10 MG TABLET PO SCH (07:59)
[2020-10-13] MEDS: INSULIN LISPRO 300 UNITS/3 ML VIAL. SQ SCH ×3 (08:00→17:22)
[2020-10-13] MEDS: ENOXAPARIN ** NOTE DOSE ** SYRINGE SQ SCH ×2 (08:02→20:31)
[2020-10-13 11:17] VITALS: BP 117/74
--- NOTE | 2020-10-13 13:06 | PN ---
DATE: 10/13/2020 SUBJECTIVE: The patient is sitting comfortably in her chair, in no apparent distress. On questioning her, she denied any chest pain, continued to have dry hacking cough, but denied any chills, rigors, or fever. Denied any shortness of breath at rest. Apparently, she has good night sleep last night. She is afebrile and her oxygen saturation was 97% on 3 liters of oxygen. OBJECTIVE: GENERAL: When I examined her, she looked well and was clearly in no apparent respiratory distress. No pallor, jaundice, cyanosis or thyromegaly. No jugular venous distention. No lower limb edema. VITAL SIGNS: Her heart rate was 84, blood pressure was 138/82, temperature was 98.2, respiratory rate was 18 and oxygen saturation was 95% on 3 liters of oxygen. HEENT: Showed normocephalic, atraumatic. NECK: Supple. HEART: Showed normal first and second heart sounds. No gallop, rub or murmur. CHEST: Clear to auscultation. No crepitation or rhonchi. ABDOMEN: Distended, soft, nontender. NEUROLOGIC: She was grossly intact. Her intake over the last 24 hours was 2390, no output was recorded as of this morning. LABORATORY DATA: Her white cell count was up to 5300, hemoglobin 12, hematocrit 37, MCV 86 and platelet count of 177,000 with normal manual differential. Her chemistry showed a serum sodium 136, potassium 3.9, chloride 99, bicarbonate 27, anion gap of 10, BUN 23, creatinine 1.2, estimated GFR was 46 mL per minute. Her glucose 206, calcium was 8.8. Total bilirubin, AST, ALT, alkaline phosphatase were normal. Total protein 7.5, albumin was 3.2. D-dimer was 0.88. Urinalysis essentially unremarkable and her influenza A and B were negative. ASSESSMENT: 1. A 54-year-old female patient, who was admitted with acute hypoxic respiratory failure. 2. COVID-19 pneumonia. 3. Community-acquired pneumonia. 4. The patient has multiple other medical problems including A. Type 2 diabetes mellitus, seems to be reasonably controlled. B. Hypertension. C. Hyperlipidemia. D. Hypothyroidism. E. History of deep vein thrombosis and pulmonary embolism. F. Chronic kidney disease. PLAN: To continue with IV antibiotic. Continue with dexamethasone. Continue with DVT prophylaxis. Continue with all other medication, apparently THE PATIENT IS ALLERGIC TO CIPRO, so we switched her to ceftriaxone and Zithromax. JANNY BOYD MD DR: ABHI/monica JOB#: [id number] / [id number]
[2020-10-13 14:53] VITALS: BP 139/84
[2020-10-13] MEDS: traMADol 50 MG TABLET PO PRN ×2 (15:31→20:31)
[2020-10-13 18:23] VITALS: BP 129/77
[2020-10-13] MEDS: clonazePAM 1 MG TABLET PO SCH (20:30)
[2020-10-13] MEDS: LACTOBACILLUS RHAMNOSUS GG 1 CAPSULE. PO SCH (20:30)
[2020-10-13] MEDS: ATORVASTATIN CALCIUM 20 MG TABLET PO SCH (20:30)
[2020-10-13] MEDS: OLANZapine 10 MG TABLET PO SCH (20:31)
[2020-10-13 23:23] VITALS: BP 132/84
[2020-10-14] MEDS: guaiFENesin DM 200MG/20MG 10 ML SYRUP PO PRN ×2 (03:27→10:18)
[2020-10-14] MEDS: LEVOTHYROXINE 50 MCG TABLET PO SCH (05:02)
[2020-10-14 05:32] LABS: HEMATOCRIT 39.1 % (36.0-47.0); HEMOGLOBIN 12.7 g/dL (12.0-15.5); RED BLOOD COUNT 4.51 x10^6/uL (3.50-5.40); RED CELL DISTRIBUTION WIDTH 13.9 % (11.5-14.5); WHITE BLOOD COUNT 5.1 x10^3/uL (4.0-11.0)
[2020-10-14 05:40] VITALS: BP 147/91
[2020-10-14] MEDS: LOPERAMIDE 2 MG CAPSULE PO PRN (05:41)
[2020-10-14 05:49] LABS: ALBUMIN 3.5 g/dL (3.4-5.0); ALBUMIN/GLOBULIN RATIO 0.8 (1.0-1.7); CALCIUM 8.8 mg/dL (8.5-10.1); CREATININE 1.3 mg/dL (0.6-1.0); GFR 42.4; POTASSIUM 3.6 mmol/L (3.5-5.1); TOTAL BILIRUBIN 0.4 mg/dL (0.2-1.0); TOTAL PROTEIN 7.8 g/dL (6.4-8.2)
[2020-10-14] MEDS: INSULIN LISPRO 300 UNITS/3 ML VIAL. SQ SCH ×2 (08:00→11:55)
[2020-10-14] MEDS: metFORMIN 500 MG TABLET PO SCH (09:08)
[2020-10-14] MEDS: LACTOBACILLUS RHAMNOSUS GG 1 CAPSULE. PO SCH (09:08)
[2020-10-14] MEDS: ENOXAPARIN ** NOTE DOSE ** SYRINGE SQ SCH (09:08)
[2020-10-14] MEDS: amLODIPine BESYLATE 10 MG TABLET PO SCH (09:09)
[2020-10-14] MEDS: FUROSEMIDE 80 MG TABLET PO SCH (09:09)
[2020-10-14] MEDS: LOSARTAN 50 MG TABLET. PO SCH (09:09)
[2020-10-14] MEDS: hydroCHLOROthiazide 25 MG TABLET PO SCH (09:10)
[2020-10-14] MEDS: FLUoxetine HCL 20 MG CAPSULE PO SCH (09:10)
[2020-10-14] MEDS: AZITHROMYCIN 250 MG TABLET. PO SCH (09:10)
[2020-10-14] MEDS: DEXAMETHASONE SOD PHOS 4 MG/ML VIAL. IVP SCH (09:10)
[2020-10-14] MEDS: traMADol 50 MG TABLET PO PRN (09:11)
[2020-10-14] MEDS: POTASSIUM CHLORIDE 20 MEQ TABLET.ER. PO SCH (09:14)
[2020-10-14 11:11] VITALS: BP 137/85
[2020-10-14] MEDS ORDERED: AZIT250T PO (12:01)
[2020-10-14] MEDS ORDERED: CEFD300C PO (12:01)
--- NOTE | 2020-10-14 15:34 | DS ---
DATE OF DISCHARGE: 10/14/2020 HOSPITAL COURSE: The patient is a 54-year-old female patient, who was admitted on 10/11/2020 with a complaint of cough and shortness of breath for the past week. She was tested positive for COVID-19 4 days prior to arrival to the Emergency Room. She apparently was discharged from this hospital on 09/19/2020 for bilateral lower extremity cellulitis. The patient stated that she has been exposed on 09/25/2020 and started having symptoms on 10/01/2020. She started having cough, headache, body aches, shortness of breath, cough with also some chills and rigors. She lost her taste and smell. She was at home; however, on 10/10/2020, she became confused and therefore, she was brought to the Emergency Department for further evaluation and treatment. She was extensively investigated in the Emergency Department, has had lab work and x-ray. Her x-ray showed that the patient has ill-defined infiltrate in the right more so than the left on a background of increased interstitial marking and enlargement of the cardiomediastinal silhouette. The latter 2 findings were present previously, but the infiltrates are new interstitial and alveolar edema as possible as is an atypical infection. The patient was admitted with acute hypoxic respiratory failure, likely due to COVID-19 pneumonia and/or community-acquired pneumonia. She was started on IV antibiotic in the form of Rocephin and Zithromax as well as dexamethasone and Lovenox and she did actually very well. She did continue to have some cough with scanty whitish sputum. PHYSICAL EXAMINATION: GENERAL: When I saw her today, she was sitting comfortably in her chair, in no apparent respiratory distress. No pallor, jaundice, cyanosis or thyromegaly. No jugular venous distension. No limb edema. VITAL SIGNS: Her heart rate was 77, blood pressure was 137/85, temperature 97.1, respiratory rate 20, and oxygen saturation was 96% on room air. HEAD, EYES, EARS, NOSE AND THROAT: Showed normocephalic, atraumatic. NECK: Supple. HEART: Showed normal first and second heart sounds. No gallop, rub or murmur. CHEST: Clear to auscultation. No crepitation or rhonchi. ABDOMEN: Distended, soft, nontender. NEUROLOGIC: She was grossly intact. LABORATORY DATA: Showed a white cell count 5100, hemoglobin 13, hematocrit 39, MCV 87, and platelet count of 186,000. Serum sodium was 139, potassium 3.6, chloride 101, bicarbonate 27, anion gap of 11, BUN 26, creatinine 1.3, estimated GFR was 42 mL per minute. Her glucose 166, calcium was 8.8. Total bilirubin, AST, ALT, alkaline phosphatase were normal. Total protein 7.6, albumin was 3.5. Her D-dimer was 0.88. Urinalysis essentially unremarkable and her influenza A and B were negative. DISCHARGE MEDICATIONS: The patient was discharged home to continue on Zithromax 250 mg p.o. daily for 3 more days, cefdinir 300 mg twice a day for 7 days, hydrochlorothiazide 25 mg daily, losartan potassium 100 mg daily, metformin 1000 mg once a day, fluoxetine 40 mg daily, furosemide 80 mg daily, amlodipine 10 mg daily. She was also discharged on a tapering course of dexamethasone, levothyroxine 50 mcg once a day, potassium chloride 20 mEq twice a day, olanzapine 20 mg at bedtime, atorvastatin 40 mg at bedtime, clonazepam 1 mg at bedtime, tramadol 50 mg every 6 hours. FINAL DISCHARGE DIAGNOSES: 1. Acute hypoxic respiratory failure. 2. COVID-19 pneumonia. 3. Community-acquired pneumonia. 4. The patient has multiple other medical problems including: A. Type 2 diabetes mellitus, seems to be reasonably controlled. B. Hypertension. C. Hyperlipidemia. D. Hypothyroidism. E. History of deep vein thrombosis and pulmonary embolism. F. Chronic kidney disease. JANNY BOYD MD DR: ABHI/monica JOB#: [id number] / [id number]
== END 2020-10-14 14:12 | disposition home or self-care (01) | DRG 177 ==
LOC: ER 09:18 → 1 SOUTH 13:33 → ER 14:05
PROVIDERS: ADMIT Internal Medicine; ATTEND Internal Medicine
DX: U07.1 COVID-19 (principal); J96.01 Acute respiratory failure with hypoxia; J12.82 Pneumonia due to coronavirus disease 2019; E03.9 Hypothyroidism, unspecified; E11.22 Type 2 diabetes mellitus with diabetic chronic kidney disease; E78.5 Hyperlipidemia, unspecified; I12.9 Hypertensive chronic kidney disease with stage 1 through stage 4 chronic kidney disease, or unspecified chronic kidney disease; N18.9 Chronic kidney disease, unspecified; E66.01 Morbid (severe) obesity due to excess calories; F32.9 Major depressive disorder, single episode, unspecified; F41.9 Anxiety disorder, unspecified; G89.29 Other chronic pain; M19.90 Unspecified osteoarthritis, unspecified site; Z88.1 Allergy status to other antibiotic agents; Z91.040 Latex allergy status; Z80.1 Family history of malignant neoplasm of trachea, bronchus and lung; Z82.49 Family history of ischemic heart disease and other diseases of the circulatory system; Z82.5 Family history of asthma and other chronic lower respiratory diseases; Z83.3 Family history of diabetes mellitus; Z86.711 Personal history of pulmonary embolism; Z86.718 Personal history of other venous thrombosis and embolism; Z90.710 Acquired absence of both cervix and uterus
CPT/HCPCS: 36415; 71045; 80053; 81001; 82550; 82947; 83605; 83880; 84484; 85007; 85025; 85027; 85379; 87040; 87804; 93005; 96365; 96375; J0456; J0696; J1100; J1650; J1815; J2543; J3370; J3490; J7040; J7050; 99285-25

== ENCOUNTER 2020-11-23 19:43 | Inpatient (IN) | payer BC ==
[~2020-11-23] VITALS: Ht 167.6 cm; Wt 184.5 kg
[~2020-11-23 19:43] MED LIST changes: +AMLO-187 PO; +AZIT250T PO; +CEFD300C PO; +FLUO40CA2 PO; +FURO80TA3 PO; +OLAN10TA9 PO
--- NOTE | 2020-11-23 20:37 | PHYS DOC ---
Past History Past Medical History: Anxiety, Arthritis, Depression, Diabetes, DVT, Hypertension, Sciatica, Other Past Surgical History: Hysterectomy, Tonsillectomy Smoking: Non-smoker Alcohol Use: None Drug Use: None General Adult EDM: Chief Complaint: Shortness of breath HPI: HPI: 54-year-old female presents with increasing shortness of breath and increased lower extremity edema. This has been going on for about a week. Patient has k nown issues with edema and takes 80 mg of Lasix daily. She denies cough. She has some "mild" chest discomfort with deep breathing. She feels like her edema has gotten worse and that her urine output is less than usual. The lower legs have become painful. She denies fever or chills. She has no other complaints at this time. Review of Systems: Review of Systems: Constitutional: Denies fever or chills Eyes: Denies change in visual acuity HENT: Denies nasal congestion or sore throat Respiratory: Denies cough. Mild shortness of breath Cardiovascular: Chest pain with increased lower extremity edema GI: Denies abdominal pain, nausea, vomiting, bloody stools or diarrhea : Denies dysuria Musculoskeletal: Denies back pain or joint pain Integument: Denies rash Neurologic: Denies headache, focal weakness or sensory changes Endocrine: Denies polyuria or polydipsia Lymphatic: Denies swollen glands Psychiatric: Denies depression or anxiety Allergies: Allergies: Allergies Coded Allergies Type Severity Reaction Last Updated Verified ciprofloxacin Allergy Unknown 04/22/20 Yes latex Allergy Unknown 04/22/20 Yes Physical Exam: PE: Constitutional: Well developed, well nourished, morbidly obese, no acute distress, non-toxic appearance. [] HENT: Normocephalic, atraumatic, bilateral external ears normal, oropharynx moist, no oral exudates, nose normal. [] Eyes: PERRLA, EOMI, conjunctiva normal, no discharge. [] Neck: Normal range of motion, no tenderness, supple, no stridor. [] Cardiovascular: Heart rate 101, regular rhythm, no murmur [] Lungs & Thorax: Bilateral breath sounds clear to auscultation [] Abdomen: Bowel sounds normal, soft, no tenderness, no masses, no pulsatile masses. [] Skin: Warm, dry, no erythema, no rash. [] Back: No tenderness, no CVA tenderness. [] Extremities: No tenderness, no cyanosis, no clubbing, ROM intact, no edema. [] Neurologic: Alert and oriented X 3, normal motor function, normal sensory function, no focal deficits noted. [] Psychologic: Affect normal, judgement normal, mood normal. [] EKG: EKG: [] Radiology/Procedures: Radiology/Procedures: [] Impressions: Single view chest dated 11/23/2020. Comparison made to 10/11/2020. CLINICAL INDICATION: Shortness of breath. FINDINGS: Single upright portable exam performed. Study is limited due to low lung volumes. Heart size is mildly enlarged, stable. There is patchy perihilar airspace disease, similar to slightly improved. No pleural effusion. No pneumothorax. IMPRESSION: Mild perihilar airspace disease, somewhat improved from prior study. This could be related to resolving pneumonia. Recurrent disease not excluded. Electronically signed by: Jl Vale MD (11/23/2020 9:38 PM) [facility] [place] SIGNED BY: JL VALE MD DATE: 11/23/202135 CC: JEFFREY MOREJON DO; BREONNA GERBER MD ~MTH0 0 Heart Score: C/O Chest Pain: Yes HEART Score for Chest Pain: HEART Score for Chest Pain Response (Comments) Value History Slighlty/Non-Suspicious 0 ECG Normal 0 Age >45 - < 65 1 Risk Factors 1 or 2 Risk Factors 1 Troponin < Normal Limit 0 Total 2 Risk Factors: Risk Factors: DM, Current or recent (<one month) smoker, HTN, HLP, family history of CAD, obesity. Risk Scores: Score 0 - 3: 2.5% MACE over next 6 weeks - Discharge Home Score 4 - 6: 20.3% MACE over next 6 weeks - Admit for Clinical Observation Score 7 - 10: 72.7% MACE over next 6 weeks - Early Invasive Strategies Course & Med Decision Making: Course & Med Decision Making Pertinent Labs and Imaging studies reviewed. (See chart for details) The patient's chest x-ray does show some perihilar airspace disease but it is unclear if this is a new or old finding. See official read for details. I suspect it may be related to her CHF exacerbation. CHF seems likely based on her presentation, story, and history. I will give patient 2 mg of Bumex IV. I will also admit her to the hospital for further management. I spoke with Dr. Moy and he has accepted the patient for admission. [] Dragon Disclaimer: Charly Disclaimer: This electronic medical record was generated, in whole or in part, using a voice recognition dictation system. Departure Departure: Impression: Primary Impression: Lower extremity edema Additional Impression: CHF (congestive heart failure) Qualified Codes: I50.9 - Heart failure, unspecified Disposition: ADMITTED INPATIENT Admitting Physician: Cori Moy Condition: STABLE Referrals: BREONNA GERBER MD (PCP) JEFFREY MOREJON DO November 23, 2020 20:37
[2020-11-23 20:46] LABS: BILIRUBIN,URINE NEG (NEG); CLARITY,URINE CLEAR; COLOR,URINE YELLOW; GLUCOSE,URINE NEG (NEG)
[2020-11-23 20:47] LABS: BACTERIA,URINE 0 /HPF (0-FEW); NITRITE,URINE NEG (NEG); SQUAMOUS EPITHELIAL CELL,UR OCC /LPF; UROBILINOGEN,URINE 0.2 mg/dL (0.2 mg/dL); WBC,URINE 0 /HPF (0-4)
[2020-11-23 21:16] LABS: BASO # 0.1 x10^3/uL (0.0-0.2); BASO % 1 % (0-3); EOS # 0.2 x10^3/uL (0.0-0.7); EOS % 3 % (0-3); HEMATOCRIT 38.6 % (36.0-47.0); HEMOGLOBIN 12.7 g/dL (12.0-15.5); LYMPH # 1.9 x10^3/uL (1.0-4.8); LYMPH % 21 % (24-48); MEAN CORPUSCULAR HEMOGLOBIN 28 pg (25-35); MEAN CORPUSCULAR HGB CONC 33 g/dL (31-37); MEAN CORPUSCULAR VOLUME 86 fL (79-100); MONO # 0.8 x10^3/uL (0.0-1.1); MONO % 9 % (0-9); NEUT % 66 % (31-73); PLATELET COUNT 282 x10^3/uL (140-400); RED BLOOD COUNT 4.51 x10^6/uL (3.50-5.40); RED CELL DISTRIBUTION WIDTH 14.2 % (11.5-14.5); WHITE BLOOD COUNT 9.1 x10^3/uL (4.0-11.0)
[2020-11-23 21:26] LABS: CALCIUM 9.1 mg/dL (8.5-10.1); CREATININE 1.1 mg/dL (0.6-1.0); GFR 51.4; POTASSIUM 3.8 mmol/L (3.5-5.1)
[2020-11-23 21:39] LABS: ALBUMIN 3.1 g/dL (3.4-5.0); ALBUMIN/GLOBULIN RATIO 0.7 (1.0-1.7); TOTAL BILIRUBIN 0.3 mg/dL (0.2-1.0); TOTAL PROTEIN 7.6 g/dL (6.4-8.2)
--- NOTE | 2020-11-23 21:40 | RAD ---
Single view chest dated 11/23/2020. Comparison made to 10/11/2020. CLINICAL INDICATION: Shortness of breath. FINDINGS: Single upright portable exam performed. Study is limited due to low lung volumes. Heart size is mildl y enlarged, stable. There is patchy perihilar airspace disease, similar to slightly improved. No pleu ral effusion. No pneumothorax. IMPRESSION: Mild perihilar airspace disease, somewhat improved from prior study. This could be related to resolvi ng pneumonia. Recurrent disease not excluded. Electronically signed by: Jl Vale MD (11/23/2020 9:38 PM) KETTY
[2020-11-23] MEDS: BUMETANIDE 1 MG/4 ML VIAL. IVP SCH (21:51)
[2020-11-23] MEDS ORDERED: ONDANSETRON PF 4 MG/2 ML VIAL. IVP PRN (22:00)
[2020-11-23] MEDS ORDERED: MORPHINE SULFATE 2 MG/ML DISP.SYRIN. IV ONE (22:30)
[2020-11-23 23:04] VITALS: BP 135/84
[2020-11-23] MEDS: MORPHINE SULFATE 2 MG/ML DISP.SYRIN. IVP PRN (23:40)
--- NOTE | 2020-11-24 00:02 | EKG ---
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
[2020-11-24] MEDS: MORPHINE SULFATE 2 MG/ML DISP.SYRIN. IVP PRN ×8 (01:56→19:14)
[2020-11-24 05:35] VITALS: BP 96/65
[2020-11-24] MEDS: BUMETANIDE 1 MG/4 ML VIAL. IVP SCH ×2 (10:14→14:21)
[2020-11-24 11:26] VITALS: BP 119/78
[2020-11-24] MEDS: metOLazone 2.5 MG TABLET PO SCH (14:51)
--- NOTE | 2020-11-24 15:55 | HP ---
HISTORY OF PRESENT ILLNESS: The patient is a 54-year-old female patient who presented to the Emergency Room with a complaint of worsening swelling of both lower extremities and shortness of breath that started about a week ago. She has issues with swelling of her legs and she has been taking 80 mg of Lasix daily without really much improvement. She denied any cough. Denied any chills, rigors or fever. She feels that her edema has gotten worse despite and her urine output is much less than usual, and her legs have became painful. She denied any fever, chills or rigors. She was extensively investigated in the emergency room and has had an EKG and a chest x-ray. The chest x-ray showed the patient has mild perihilar airspace disease, somewhat improved from prior study, this could be related to resolving pneumonia. She has had lab work done that was unremarkable, in fact her white cell count was normal. Her chemistry showed that she has chronic kidney disease, creatinine 1.1. Estimated GFR was 51 mL per minute. The patient was admitted with congestive heart failure and bilateral lower limb edema, was started on IV Bumex. We will continue with that. I will add also Zaroxolyn if necessary as she has gained a lot of weight. She usually weighs about 376 and today, her weight is 409 pounds. PAST MEDICAL HISTORY: Significant for hypertension, hyperlipidemia, type 2 diabetes mellitus, hypothyroidism. She has a history of DVT and pulmonary emboli as well as obstructive sleep apnea, although she said she has a sleep study and did not approve it. She also has depression and anxiety. PAST SURGICAL HISTORY: Significant for right foot surgery, right knee arthroscopic surgery, tonsillectomy, adenoidectomy, total abdominal hysterectomy, bilateral salpingo-oophorectomy. ALLERGIES: SHE IS ALLERGIC TO CIPRO AND LATEX. FAMILY HISTORY: She has two sisters, one older has diabetes and had multiple stents in her heart. Her second sister is healthy and her younger brother is healthy. Her mother is still alive and has congestive heart failure. Father is still alive and has had a myocardial infarction. SOCIAL HISTORY: She is , has 2 daughters and 1 son. She never smoked, drink alcohol occasionally, ____ any drugs. She used to be a [employer]. MEDICATIONS: She is currently on the following medication. She is on atorvastatin calcium 40 mg at bedtime, amlodipine 10 mg once a day, olmesartan/hydrochlorothiazide 1 tablet daily. She is on clonazepam 0.5 mg at bedtime, fluoxetine 40 mg daily, olanzapine ____ mg at bedtime. She is on potassium chloride 20 mEq twice a day, furosemide 80 mg once a day, metformin 1000 mg daily and levothyroxine sodium 50 mcg once a day. PHYSICAL EXAMINATION: GENERAL: On arrival to the emergency room, she looked well, slightly somewhat tachypneic, but there was no pallor, jaundice, cyanosis or thyromegaly. No jugular venous distention, marked bilateral lower limb edema. VITAL SIGNS: Her heart rate was 104, blood pressure is 142/83, temperature was 98.6, respiratory rate 24, and oxygen saturation was 95% on room air. HEAD, EYES, EARS, NOSE AND THROAT: Normocephalic and atraumatic. NECK: Supple. HEART: Showed normal first and second heart sounds. No gallop, rub or murmur. CHEST: Clear to auscultation, no crepitation or rhonchi. ABDOMEN: Distended, soft, nontender, no guarding or rigidity. No organomegaly. All hernial orifice intact. Bowel sounds normal. NEUROLOGIC: She is awake, alert, responding appropriately. All cranial nerves intact. She moves extremities without difficulty. She normally ambulates without assistance or assistive devices. LABORATORY DATA: On admission showed a serum sodium 137, potassium 3.8, chloride 100, bicarbonate 30, anion gap of 7, BUN 15, creatinine 1.1. Estimated GFR was 51 mL per minute. Her glucose was 198, calcium was 9.1. Total bilirubin, AST, ALT, alkaline phosphatase were normal. Her beta natriuretic peptide was only 58. Her total protein was 7.6, albumin was 3.1. Her white cell count was 9000, hemoglobin 13, hematocrit 39, MCV 86 and platelet count 282,000 with normal manual differential. Urinalysis showed the urine was yellow; clear with a pH of 7; specific gravity of 1.015; the urine was negative for protein, glucose, ketones; trace of blood; negative for nitrite and leukocyte esterase; 1-2 rbc's, 0 wbc's and 0 bacteria. ASSESSMENT AND PLAN: The patient was admitted basically with probably acute on chronic diastolic congestive heart failure, although her BNP is low. Marked swelling of both lower extremities and weight gain from 376 to 409. She admitted that she eats a lot of food that ____ and has high sodium content. My plan is to change her IV antibiotic to IV Bumex and add Zaroxolyn and increase potassium. I will also arrange for her to have bilateral venous Doppler ultrasound and will monitor her weight daily. I will discontinue her amlodipine as it is known to cause fluid retention and decide further management on a daily basis. ABHI/DANIELLE/CAT DR: Lisa TID: [id number]
[2020-11-24 15:59] VITALS: BP 120/80
--- NOTE | 2020-11-24 17:21 | RAD ---
INDICATION: Reason: markedly swollen LE with history of DVT/PE / Spl. Instructions: / History: COMPARISON: None. TECHNIQUE: Grayscale, color and doppler ultrasound images were obtained of the bilateral lower extrem ity venous vasculature. RIGHT: No thrombus identified in the common femoral vein, femoral vein, popliteal vein. Calf veins are not w ell visualized secondary to overlying structures obscuring LEFT: No thrombus identified in the common femoral vein, femoral vein, popliteal vein. Calf veins are not w ell visualized secondary to overlying structures obscuring. IMPRESSION: * No thrombus identified in deep venous system of bilateral lower extremities. Limited evaluation s econdary to overlying structures obscuring especially within the calf. * Within the right popliteal fossa there is a complex hypoechoic structure identified. Possible caus es include complex Hudson's cyst with another possible cause including soft tissue hematoma. Cannot as sess for sterility on ultrasound. Given the complexity it may be helpful to obtain a follow-up to ens ure that this does not increase to exclude a solid component. No definite internal vascularity to sug gest solid mass is seen on this examination. Electronically signed by: Brayden Amaya MD (11/24/2020 5:18 PM) [id number]
[2020-11-24 19:28] VITALS: BP 122/78
[2020-11-24] MEDS ORDERED: OLANZAPINE 20 MG PO SCH (21:00)
[2020-11-24] MEDS: clonazePAM 1 MG TABLET PO SCH (21:00)
[2020-11-24] MEDS: POTASSIUM CHLORIDE 20 MEQ TABLET.ER. PO SCH (21:09)
[2020-11-24] MEDS: oxyCODONE IR 5 MG TABLET PO PRN (21:10)
[2020-11-24] MEDS: OLANZapine 10 MG TABLET PO SCH (21:10)
[2020-11-24] MEDS: ATORVASTATIN CALCIUM 20 MG TABLET PO SCH (21:11)
--- NOTE | 2020-11-25 00:02 | PN ---
DATE: 11/24/2020 SUBJECTIVE: The patient is resting, slightly propped up in bed, in no apparent respiratory distress; however, she continued to complain of mild shortness of breath and swelling of her legs. PHYSICAL EXAMINATION: GENERAL: When I examined her today, she looked well and showed no pallor, jaundice, cyanosis, or thyromegaly. No jugular distention. No edema. VITAL SIGNS: Heart rate was 104, blood pressure is 119/78, temperature 97.8, respiratory rate was 18 and oxygen saturation was 90% on room air. HEAD, EYES, EARS, NOSE AND THROAT: Normocephalic, atraumatic. NECK: Supple. HEART: Showed normal first and second sounds. No gallop or murmur. CHEST: Clear to auscultation, no rhonchi. ABDOMEN: Distended, soft, nontender. NEUROLOGIC: She is awake, alert, responding appropriately. Cranial nerves intact. She moves extremities without difficulty. EXTREMITIES: Showed no clubbing, cyanosis, but marked bilateral lower extremity edema. Faint erythema. Her intake and output are incompletely recorded. LABORATORY DATA: No lab work done this morning. ASSESSMENT: This is a 54-year-old female patient who probably with acute on chronic diastolic congestive heart failure, marked weight gain and bilateral lower extremity edema. She has other medical problems include hypertension, hyperlipidemia, type 2 diabetes mellitus, history of DVT and pulmonary embolism. PLAN: My plan is to continue with Bumex 2 mg IV twice a day. We will add Zaroxolyn 2.5 mg daily and increase potassium to 20 mEq 3 times a day. I will also arrange for her to have venous Doppler ultrasound of both lower extremities. She has a history of DVT and PE. We will arrange for her to have daily weight and monitor electrolytes on a daily basis. ABHI/FIONA LAN: Lisa TID: [id number]
[2020-11-25] MEDS: oxyCODONE IR 5 MG TABLET PO PRN ×3 (03:12→20:40)
[2020-11-25] MEDS: LEVOTHYROXINE 50 MCG TABLET PO SCH (06:00)
[2020-11-25 06:01] LABS: BASO % 1 % (0-3); EOS # 0.2 x10^3/uL (0.0-0.7); EOS % 3 % (0-3); HEMATOCRIT 36.6 % (36.0-47.0); HEMOGLOBIN 12.1 g/dL (12.0-15.5); LYMPH # 1.6 x10^3/uL (1.0-4.8); LYMPH % 20 % (24-48); MEAN CORPUSCULAR HEMOGLOBIN 29 pg (25-35); MEAN CORPUSCULAR HGB CONC 33 g/dL (31-37); MEAN CORPUSCULAR VOLUME 87 fL (79-100); MONO # 0.7 x10^3/uL (0.0-1.1); MONO % 9 % (0-9); NEUT # 5.2 x10^3uL (1.8-7.7); NEUT % 67 % (31-73); PLATELET COUNT 271 x10^3/uL (140-400); RED BLOOD COUNT 4.22 x10^6/uL (3.50-5.40); RED CELL DISTRIBUTION WIDTH 14.5 % (11.5-14.5); WHITE BLOOD COUNT 7.8 x10^3/uL (4.0-11.0)
[2020-11-25 06:25] LABS: ALBUMIN/GLOBULIN RATIO 0.7 (1.0-1.7); CALCIUM 8.9 mg/dL (8.5-10.1); CREATININE 1.2 mg/dL (0.6-1.0); GFR 46.5; POTASSIUM 3.8 mmol/L (3.5-5.1); TOTAL BILIRUBIN 0.4 mg/dL (0.2-1.0); TOTAL PROTEIN 7.2 g/dL (6.4-8.2)
[2020-11-25 06:28] VITALS: BP 124/76
[2020-11-25] MEDS ORDERED: MAGNESIUM HYDROXIDE 2,400 MG/30 ML ORAL.SUSP. PO PRN (08:00)
[2020-11-25] MEDS: LOSARTAN 50 MG TABLET. PO SCH (08:19)
[2020-11-25] MEDS: hydroCHLOROthiazide 25 MG TABLET PO SCH (08:19)
[2020-11-25] MEDS: metOLazone 2.5 MG TABLET PO SCH (08:19)
[2020-11-25] MEDS: FLUoxetine HCL 20 MG CAPSULE PO SCH (08:19)
[2020-11-25] MEDS: metFORMIN 500 MG TABLET PO SCH (08:20)
[2020-11-25] MEDS: POTASSIUM CHLORIDE 20 MEQ TABLET.ER. PO SCH ×3 (08:20→20:42)
[2020-11-25] MEDS: BUMETANIDE 1 MG/4 ML VIAL. IVP SCH ×2 (08:20→13:25)
[2020-11-25 11:11] VITALS: BP 120/75
[2020-11-25] MEDS: DOCUSATE SODIUM 100 MG CAPSULE PO PRN (13:42)
[2020-11-25 15:29] VITALS: BP 102/56
[2020-11-25 19:16] VITALS: BP 102/72
[2020-11-25] MEDS: ATORVASTATIN CALCIUM 20 MG TABLET PO SCH (20:40)
[2020-11-25] MEDS: OLANZapine 10 MG TABLET PO SCH (20:40)
[2020-11-25] MEDS: clonazePAM 1 MG TABLET PO SCH (20:41)
--- NOTE | 2020-11-26 00:30 | PN ---
DATE: 11/25/2020 SUBJECTIVE: The patient is resting, slightly propped up in bed, in no apparent distress. On questioning her, she stated that she is feeling much better. Her legs are less swollen and less painful. Denied any cough or phlegm. Denied any shortness of breath while in her bed. PHYSICAL EXAMINATION: GENERAL: When I examined her, she looked well. There was no apparent respiratory distress. No pallor, jaundice, cyanosis, or thyromegaly. No jugular distention. No edema. VITAL SIGNS: Heart rate was 91, blood pressure is 120/75, temperature was 98.4, respiratory rate was 14, and oxygen saturation was 89% on room air. HEAD, EYES, EARS, NOSE AND THROAT: Normocephalic, atraumatic. NECK: Supple. HEART: Showed normal first and second heart sounds. No gallop, murmur. CHEST: Clear to auscultation, no crepitation or rhonchi. ABDOMEN: Distended, soft, nontender. NEUROLOGIC: She is grossly intact. Her intake and output were incompletely recorded. LABORATORY DATA: Her lab work this morning showed a white cell count of 7800, hemoglobin 12, hematocrit 36, MCV 87, and platelet count 271,000. Her chemistry showed a serum sodium 138, potassium 3.8, chloride 98, bicarbonate 33, anion gap of 7, BUN 15, creatinine 1.2. Estimated GFR was 46 mL per minute. Her glucose was 104, calcium was 8.9. Total bilirubin, AST, ALT, alkaline phosphatase were normal. Total protein 7.2, albumin 3. ASSESSMENT: 1. Eiijr-ed-kpamrso diastolic congestive heart failure 2. Marked weight gain, bilateral lower extremity edema. 3. Other medical problems include: A. Hypertension. B. Hyperlipidemia. C. Type 2 diabetes mellitus. D. History of deep venous thrombosis and pulmonary embolism. We did actually bilateral lower extremity venous ultrasound that was negative for deep venous thrombosis. PLAN: Plan is to continue with Bumex 2 mg IV twice a day. Added Zaroxolyn 2.5 mg daily, potassium 20 mEq twice a day. Daily weight and monitor electrolyte and decide on further management accordingly. KEYONA DR: Lisa TID: [id number]
[2020-11-26 05:42] VITALS: BP 157/82
[2020-11-26] MEDS: LEVOTHYROXINE 50 MCG TABLET PO SCH (06:11)
[2020-11-26 06:12] LABS: CREATININE 1.2 mg/dL (0.6-1.0); GFR 46.5; POTASSIUM 3.6 mmol/L (3.5-5.1)
[2020-11-26] MEDS: LOSARTAN 50 MG TABLET. PO SCH (09:06)
[2020-11-26] MEDS: hydroCHLOROthiazide 25 MG TABLET PO SCH (09:07)
[2020-11-26] MEDS: metFORMIN 500 MG TABLET PO SCH (09:07)
[2020-11-26] MEDS: oxyCODONE IR 5 MG TABLET PO PRN (09:07)
[2020-11-26] MEDS: POTASSIUM CHLORIDE 20 MEQ TABLET.ER. PO SCH (09:07)
[2020-11-26] MEDS: FLUoxetine HCL 20 MG CAPSULE PO SCH (09:07)
[2020-11-26] MEDS: metOLazone 2.5 MG TABLET PO SCH (09:07)
[2020-11-26] MEDS: BUMETANIDE 1 MG/4 ML VIAL. IVP SCH (09:08)
[2020-11-26] MEDS: DOCUSATE SODIUM 100 MG CAPSULE PO PRN (09:14)
[2020-11-26] MEDS ORDERED: TRAM-48 PO (10:28)
[2020-11-26 10:42] VITALS: BP 125/77
--- NOTE | 2020-11-26 17:02 | DS ---
DATE OF DISCHARGE: 11/26/2020 ATTENDING PHYSICIANS: Dr. Moy and Dr. Vieira. FINAL DISCHARGE DIAGNOSES: 1. Stasis dermatitis. 2. Acute on chronic diastolic congestive heart failure. 3. Volume overload with lower extremity edema. 4. Hypertension. 5. Morbid obesity. 6. Type 2 diabetes. 7. History of deep vein thrombosis. HISTORY AND PHYSICAL: The patient is a 54-year-old female who weighs 184 kilograms. She has very little insight. I admitted her 2 months ago with similar issues with fluid restriction, she drinks quite a bit of water and therefore retained it. She was admitted with pedal edema and exacerbation of her diastolic congestive heart failure. PHYSICAL EXAMINATION: Please see the dictated note. PERTINENT LABORATORY AND X-RAY STUDIES: On admission, her hemoglobin was 12.7 g/dL with a white count of 9100. Electrolytes were monitored prior to discharge. Creatinine stable 1.2 mg/dL. Nonfasting blood sugar was 190. Her electrolytes are within range. Potassium 3.6 mEq, sodium 139 mEq per liter. COURSE IN THE HOSPITAL: The patient was admitted. She was started on aggressive diuresis with intravenous Bumex, addition of Zaroxolyn, fluid restriction, daily weights, and serial chemistries. She did well. She had good diuresis and swelling came down nicely. On the fourth hospital day, her vital signs were quite stable. Her swelling has improved. Her blood pressure was 150/80, pulse was 96 and regular, she was afebrile, oxygen saturation 94% on room air. At this time, she wanted to go home. I felt it was reasonable. I wrote a script for Lasix 80 mg b.i.d. she had only been on once a day, K-Dur 20 mEq b.i.d., Ultram 100 mg p.o. q.8 hours p.r.n. pain and continuation of her amlodipine, Lipitor, cefdinir until completed, clonazepam, Prozac 40 mg daily, Synthroid, metformin 1000 b.i.d., Zyprexa, olmesartan and potassium supplementation. I encouraged her strongly to weigh herself every day and try to keep within a pound or two of her dry weight. I tried to explain in detail also the nursing instruction whether or not she comprehends us and we will do this remains to be seen. In any event, the patient was discharged from our hospital in stable condition, improved with explicit instructions and followup care. Total discharge time spent 41 minutes. DENNY/DANIELLE DR: Fareed TID: [id number] CC: Dr. José Jasso
== END 2020-11-26 11:31 | disposition home or self-care (01) | DRG 291 ==
LOC: ER 19:43 → 1 SOUTH 22:31
PROVIDERS: ADMIT Internal Medicine; ATTEND Internal Medicine
DX: I13.0 Hypertensive heart and chronic kidney disease with heart failure and stage 1 through stage 4 chronic kidney disease, or unspecified chronic kidney disease (principal); I50.33 Acute on chronic diastolic (congestive) heart failure; Z68.44 Body mass index [BMI] 60.0-69.9, adult; E03.9 Hypothyroidism, unspecified; E11.22 Type 2 diabetes mellitus with diabetic chronic kidney disease; E66.01 Morbid (severe) obesity due to excess calories; E78.5 Hyperlipidemia, unspecified; I87.2 Venous insufficiency (chronic) (peripheral); N18.9 Chronic kidney disease, unspecified; F32.9 Major depressive disorder, single episode, unspecified; F41.9 Anxiety disorder, unspecified; M19.90 Unspecified osteoarthritis, unspecified site; Z79.899 Other long term (current) drug therapy; Z82.49 Family history of ischemic heart disease and other diseases of the circulatory system; Z83.3 Family history of diabetes mellitus; Z86.711 Personal history of pulmonary embolism; Z86.718 Personal history of other venous thrombosis and embolism; Z90.710 Acquired absence of both cervix and uterus; Z91.040 Latex allergy status; Z88.1 Allergy status to other antibiotic agents
CPT/HCPCS: 36415; 71045; 80048; 80053; 81001; 82947; 83880; 84484; 85025; 93005; 93970; J2270; J2405; J3490; 99285-25

== ENCOUNTER 2021-06-15 05:03 | Inpatient (IN) | payer BC ==
[~2021-06-15] VITALS: Ht 167.6 cm; Wt 177.7 kg
[~2021-06-15 05:03] MED LIST changes: -CYCL-331 PO; +CYCL10TA19 PO; +OLAN10TA69 PO; -OLAN10TA9 PO; +TRAM-48 PO
[2021-06-15] MEDS ORDERED: DEXAMETHASONE 4 MG TABLET PO ONE (05:15)
[2021-06-15] MEDS ORDERED: IV RINGERS SOLUTION,LACTATED 1,000 ML IV ONE (05:15)
[2021-06-15] MEDS ORDERED: guaiFENesin/CODEINE 100mg/10mg 5 ML LIQUID PO ONE (05:15)
[2021-06-15] MEDS ORDERED: LIDOCAINE 2% 20 ML VIAL. ONE (05:26)
[2021-06-15] MEDS ORDERED: IPRATRPIUM/ALBUTEROL 0.5/2.5MG 3 ML NEBU. NEB ONE (05:30)
[2021-06-15 05:41] LABS: CALCIUM 8.6 mg/dL (8.5-10.1); CREATININE 2.8 mg/dL (0.6-1.0); GFR 17.4; POTASSIUM 3.3 mmol/L (3.5-5.1)
--- NOTE | 2021-06-15 05:41 | PHYS DOC ---
Past History Past Medical History: Anxiety, Diabetes, High Cholesterol, Hypertension (YADIRA BOSCH MD) Past Surgical History: Hysterectomy, Tonsillectomy, Other Additional Past Surgical Histo: BLADDER MESH (YADIRA BOSCH MD) Smoking: Non-smoker Alcohol Use: Occasionally Drug Use: None (YADIRA BOSCH MD) Adult General Chief Complaint Chief Complaint: COUGH HPI HPI Patient is a 55-year-old female with a past medical history of asthma who presents to the emergency department with a chief complaint of shortness of breath, and wheeze which started yesterday. Patient states she had had an asthma attack in some time and has not had to use her albuterol until now. Denies any recent travels, traumas, illnesses, fevers, chest pain, abdominal pain, nausea, vomiting, diarrhea, dysuria, hematuria or blood in stool. States has been eating and drinking normally for her. [facility] has been making urine and stool normally for her. States she is Covid vaccinated. Denies any known ill contacts. (YADIRA BOSCH MD) Review of Systems Review of Systems Review of systems otherwise unremarkable except noted in HPI (YADIRA BOSCH MD) Current Medications Current Medications Current Medications Medications (Trade) Dose Ordered Sig/Guilherme Start Time Stop Time Status Last Admin Dose Admin Dexamethasone (Decadron) 10 mg 1X ONCE 06/15/21 05:15 06/15/21 05:16 DC 06/15/21 05:22 10 MG Guaifenesin/ Codeine Phosphate (Robitussin Ac) 10 ml 1X ONCE 06/15/21 05:15 06/15/21 05:16 DC 06/15/21 05:22 10 ML Lactated Ringer's 1,000 ml @ 1,000 mls/hr 1X ONCE 06/15/21 05:15 06/15/21 06:14 06/15/21 05:23 1,000 MLS/HR Lidocaine HCl (Lidocaine 2%) 20 ml STK-MED ONCE 06/15/21 05:26 06/15/21 05:27 DC (YADIRA BOSCH MD) Allergies Allergies Allergies Coded Allergies Type Severity Reaction Last Updated Verified ciprofloxacin Allergy Unknown 04/22/20 Yes latex Allergy Unknown 04/22/20 Yes (YADIRA BOSCH MD) Physical Exam Physical Exam Constitutional: Well developed, well nourished, no acute distress, non-toxic appearance. [] HENT: Normocephalic, atraumatic, oropharynx moist, no oral exudates, nose normal. [] Eyes: conjunctiva normal, no discharge. [] Neck: Normal range of motion, no tenderness, supple, no stridor. [] Cardiovascular:Heart rate regular rhythm, no murmur [] Lungs & Thorax: Tachypnea, bilateral global end expiratory wheeze with dry cough no increased work of breathing Abdomen: soft, no tenderness, no masses, no pulsatile masses. [] Skin: Warm, dry, no erythema, no rash. [] Back: no CVA tenderness. [] Extremities: No tenderness, ROM intact, nonpitting edema. [] Neurologic: Alert and oriented X 3, normal motor function, normal sensory function, no focal deficits noted. [] Psychologic: Affect normal, judgement normal, mood normal. [] (YADIRA BOSCH MD) Current Patient Data Vital Signs Vital Signs Date Time Temp Pulse Resp B/P (MAP) Pulse Ox O2 Delivery O2 Flow Rate FiO2 06/15/21 05:03 99.2 73 18 108/76 (87) 93 Room Air (YADIRA BOSCH MD) EKG EKG [] (YADIRA BOSCH MD) EKG EKG ordered and interpreted by myself at 0600 hrs. is sinus rhythm at 93 bpm, unremarkable intervals, no axis deviation, no obvious ischemic findings, no STEMI (ADWOA SHELTON DO) Radiology/Procedures Radiology/Procedures [] (YADIRA BOSCH MD) Radiology/Procedures EXAM: CT CHEST WITHOUT CONTRAST HISTORY: Shortness of breath COMPARISON: Chest radiograph 12/03/2020 TECHNIQUE: Helical CT of the chest performed without contrast. Coronal and sagittal reformats were obtained. One or more of the following individualized dose reduction techniques were utilized for this examination: 1. Automated exposure control 2. Adjustment of the mA and/or kV according to patient size 3. Use of iterative reconstruction technique. FINDINGS: Thyroid gland and thoracic inlet: Unremarkable. Heart and great vessels: Heart is normal in size. No pericardial effusion. The thoracic aorta is normal in caliber. Mediastinum and chayo: There are small mediastinal lymph nodes, likely reactive. Calcified left hilar and subcarinal lymph nodes. Lungs and pleura: There is a calcified granuloma in the left lower lobe. No taty dence of pneumonia. No pleural effusion or pneumothorax. Central airways are clear. Chest wall and axillae: No axillary lymphadenopathy. Upper abdomen: There is hepatic steatosis. The gallbladder is surgically absent. Bones: No acute osseous abnormality. There is dextroscoliosis of the thoracic spine. IMPRESSION: 1. No acute cardiopulmonary abnormality. 2. Hepatic steatosis. Electronically signed by: Marielos Nichols MD (06/15/2021 6:40 AM) [facility] (ADWOA SHELTON DO) Heart Score C/O Chest Pain: No Risk Factors: Risk Factors: DM, Current or recent (<one month) smoker, HTN, HLP, family history of CAD, obesity. Risk Scores: Risk Factors: DM, Current or recent (<one month) smoker, HTN, HLP, family history of CAD, obesity. (YADIRA BOSCH MD) Course & Med Decision Making Course & Med Decision Making Patient is a 55-year-old female with asthma who presents with shortness of breath and wheezing Vital signs notable for tachypnea but no hypoxia. Physical exam noted above. Patient placed on the monitor with IV access established. Given DuoNeb by EMS in route. Given 4 mils of 2% EENT lidocaine nebulizer treatment. Given second DuoNeb. Patient care handed off to day team for continued evaluation, treatment and disposition. [] (YADIRA BOSCH MD) Course & Med Decision Making I assumed care of patient after comprehensive signout from off going physician Patient symptoms not drastically improved after ER intervention. I reviewed all ER work-up findings with patient most pertinent for MATI in a severely dehydrated patient I discussed need for hospitalization for continued fluid replacement and breath ing treatments for her bronchospasms, patient amenable. I contacted hospitalist who agreed to need for admission and accepted patient under his care (ADWOA SHELTON DO) Dragon Disclaimer Dragon Disclaimer This electronic medical record was generated, in whole or in part, using a voice recognition dictation system. (YADIRA BOSCH MD) Departure Departure: Impression: Primary Impression: Shortness of breath Additional Impressions: Asthma exacerbation MATI (acute kidney injury) Disposition: ADMITTED INPATIENT Admitting Physician: Frank Vieira (ADWOA SHELTON DO) Condition: STABLE Referrals: BREONNA GERBER MD (PCP) Patient Instructions: Asthma Attacks, Prevention, Asthma, Adult Problem Qualifiers YADIRA BOSCH MD Jun 15, 2021 05:41 ADWOA SHELTON DO Jun 15, 2021 06:32
[2021-06-15] MEDS ORDERED: LIDOCAINE 2% 20 ML VIAL. IJ ONE (05:45)
[2021-06-15 05:47] LABS: ALBUMIN 3.1 g/dL (3.4-5.0); ALBUMIN/GLOBULIN RATIO 0.8 (1.0-1.7); MAGNESIUM 2.1 mg/dL (1.8-2.4); TOTAL BILIRUBIN 0.4 mg/dL (0.2-1.0)
[2021-06-15 05:52] LABS: BASO % 1 % (0-3); EOS # 0.3 x10^3/uL (0.0-0.7); EOS % 4 % (0-3); HEMATOCRIT 34.6 % (36.0-47.0); HEMOGLOBIN 11.5 g/dL (12.0-15.5); LYMPH # 1.7 x10^3/uL (1.0-4.8); LYMPH % 19 % (24-48); MEAN CORPUSCULAR HEMOGLOBIN 27 pg (25-35); MEAN CORPUSCULAR HGB CONC 33 g/dL (31-37); MEAN CORPUSCULAR VOLUME 82 fL (79-100); MONO # 0.5 x10^3/uL (0.0-1.1); MONO % 6 % (0-9); NEUT # 6.5 x10^3uL (1.8-7.7); NEUT % 72 % (31-73); PLATELET COUNT 273 x10^3/uL (140-400); RED BLOOD COUNT 4.24 x10^6/uL (3.50-5.40); RED CELL DISTRIBUTION WIDTH 15.4 % (11.5-14.5); WHITE BLOOD COUNT 9.1 x10^3/uL (4.0-11.0)
--- NOTE | 2021-06-15 06:42 | RAD ---
EXAM: CT CHEST WITHOUT CONTRAST HISTORY: Shortness of breath COMPARISON: Chest radiograph 12/03/2020 TECHNIQUE: Helical CT of the chest performed without contrast. Coronal and sagittal reformats were o btained. One or more of the following individualized dose reduction techniques were utilized for this examinat ion: 1. Automated exposure control 2. Adjustment of the mA and/or kV according to patient size 3. Use of iterative reconstruction technique. FINDINGS: Thyroid gland and thoracic inlet: Unremarkable. Heart and great vessels: Heart is normal in size. No pericardial effusion. The thoracic aorta is norm al in caliber. Mediastinum and chayo: There are small mediastinal lymph nodes, likely reactive. Calcified left hilar and subcarinal lymph nodes. Lungs and pleura: There is a calcified granuloma in the left lower lobe. No evidence of pneumonia. No pleural effusion or pneumothorax. Central airways are clear. Chest wall and axillae: No axillary lymphadenopathy. Upper abdomen: There is hepatic steatosis. The gallbladder is surgically absent. Bones: No acute osseous abnormality. There is dextroscoliosis of the thoracic spine. IMPRESSION: 1. No acute cardiopulmonary abnormality. 2. Hepatic steatosis. Electronically signed by: Marielos Nichols MD (06/15/2021 6:40 AM) [facility]
[2021-06-15] MEDS ORDERED: IV NORMAL SALINE 1,000ML 1,000 ML IV ONE (06:45)
[2021-06-15 07:39] LABS: AMORPHOUS SEDIMENT,UR PRESENT /HPF; BACTERIA,URINE FEW /HPF (0-FEW); BILIRUBIN,URINE NEG (NEG); CLARITY,URINE CLEAR; COLOR,URINE YELLOW; GLUCOSE,URINE 500 mg/dL (NEG); NITRITE,URINE NEG (NEG); RBC,URINE OCC /HPF (0-2); SQUAMOUS EPITHELIAL CELL,UR MANY /LPF; UROBILINOGEN,URINE 0.2 mg/dL (0.2 mg/dL)
--- NOTE | 2021-06-15 08:33 | EKG ---
[id number] [place] [id number] Test Date: 2021-06-15 Test Time: 05:48:08 Pat Name: NIKKI MARAVILLA Department: Room: Gender: F Delivery Coordinator: THOM : 1965 Requested By: YADIRA BOSCH Order Number: [id number] Reading MD: Ricardo Echevarria Measurements Intervals [place] Rate: 93 P: -26 NM: 156 QRS: 17 QRSD: 110 T: 28 QT: 372 QTc: 465 Interpretive Statements SINUS RHYTHM NORMAL ECG RI6.02 Compared to ECG 11/23/2020 20:26:26 Sinus tachycardia no longer present Electronically Signed On 06-15-2021 9:22:00 COMMUNICATIONS PROFESSOR by Ricardo Echevarria
--- NOTE | 2021-06-15 11:11 | HP ---
DATE OF SERVICE: 06/15/2021 ADMIT DATE: 06/15/2021 ATTENDING PHYSICIAN: Dr. Vieira. CHIEF COMPLAINT: Cough and shortness of breath. HISTORY OF PRESENT ILLNESS: The patient is a 55-year-old female admitted through the ED with a 3-day history of significant cough and wheezing. She is not a smoker, but she lives with the who is a heavy smoker. Chest x-ray was nondiagnostic. She has had her coronavirus immunization. Her swab initially was negative. She is admitted then with bronchospasms and exacerbation of asthma. PAST MEDICAL HISTORY: Significant for chronic kidney disease. Her creatinine is up due to her diuretic use. She has morbid obesity with a weight of 181 kg, which is over 400 pounds. She is a diabetic. PAST SURGICAL HISTORY: Includes hysterectomy for uterine fibroids. She has had a foot surgery. ALLERGIES: SHE HAS ALLERGIES TO CIPRO AND LATEX, EXACT REACTION IS UNCLEAR. CURRENT MEDICATIONS: Include Lipitor, Klonopin, Prozac, Lasix, Synthroid, metformin, olanzapine, olmesartan, hydrochlorothiazide, potassium, and Ultram p.r.n. FAMILY HISTORY: Her father of lung cancer at age 74. Mom of COPD at age 68. Both of them were smokers. She is disabled. She lives with her . REVIEW OF SYSTEMS: Significant for the cough and congestion. No recent travel. No COVID exposure. She has chronic pedal edema. All other systems reviewed and turned to be negative. PHYSICAL EXAMINATION: GENERAL: When I saw her, this is a pleasant elderly female. VITAL SIGNS: Initial vital signs showed a blood pressure of 132/70 mmHg, pulse is 90 and regular, temperature 99.2 degrees Fahrenheit, oxygen saturation 89% on room air. HEENT: Head is without trauma. Pupils are reactive. Sclerae nonicteric. The oropharynx is clear. NECK: Supple. LUNGS: Coarse rhonchi bilaterally. CARDIOVASCULAR: Showed distant heart tones. No gallop. ABDOMEN: Morbidly obese. No organomegaly. Bowel sounds are hypoactive. EXTREMITIES: Showed 2+ edema of the lower extremities. NEUROLOGIC: Function focally intact. Speech is fluent. PERTINENT LABORATORY STUDIES: Admission hemoglobin was 11.5 g/dL with a white count of 9100. Creatinine is 2.8 mg/dL, baseline is 1.2; BUN 51. Nonfasting blood sugar 172. Sodium 128, potassium 3.[address] of the chest showed no chest involvement. She has hepatic steatosis. ASSESSMENT: 1. A 55-year-old female with acute bronchospasm. 2. Exacerbation of asthma. 3. Morbid obesity. 4. Chronic kidney disease due to diuretics. She has prerenal azotemia. PLAN: 1. Admit to the inpatient unit. 2. Steroid therapy. 3. Diuretics have been held. 4. Serial chemistries. 5. Diet as tolerated. 6. Glucose control. LIV DR: Fareed TID: [id number] CC: José Jasso
[2021-06-15] MEDS ORDERED: CLON0.5T4 PO (14:06)
[2021-06-15] MEDS ORDERED: TORS100T3 PO (14:06)
[2021-06-15] MEDS ORDERED: EMPA25TA PO (14:06)
[2021-06-15 14:07] VITALS: BP 146/79
[2021-06-15] MEDS ORDERED: DEXTROSE 50% 25 GM / 50ML DISP.SYRIN. IV PRN (14:15)
[2021-06-15] MEDS ORDERED: GABA-586 PO (14:29)
[2021-06-15] MEDS: INSULIN LISPRO 300 UNITS/3 ML VIAL. SQ SCH (17:10)
[2021-06-15 19:00] VITALS: BP 118/65
[2021-06-15] MEDS ORDERED: ATORVASTATIN CALCIUM 20 MG TABLET PO SCH (21:00)
[2021-06-15] MEDS ORDERED: OLANZapine 10 MG TABLET PO SCH (21:00)
[2021-06-15] MEDS ORDERED: clonazePAM 1 MG TABLET PO SCH (21:00)
[2021-06-15] MEDS: methylPREDNISolone SOD SUCC PF 125 MG/2 ML VIAL. IV SCH (22:05)
[2021-06-15] MEDS: traMADol 50 MG TABLET PO PRN (22:05)
[2021-06-15] MEDS: GABAPENTIN 300 MG CAPSULE. PO SCH (22:05)
[2021-06-15 23:00] VITALS: BP 119/72
[2021-06-16] MEDS ORDERED: LEVOTHYROXINE 50 MCG TABLET PO SCH (06:00)
[2021-06-16 07:27] VITALS: BP 119/72
[2021-06-16] MEDS ORDERED: metFORMIN 500 MG TABLET PO SCH (08:00)
[2021-06-16] MEDS: INSULIN LISPRO 300 UNITS/3 ML VIAL. SQ SCH (08:07)
[2021-06-16] MEDS: methylPREDNISolone SOD SUCC PF 125 MG/2 ML VIAL. IV SCH (08:08)
[2021-06-16] MEDS: GABAPENTIN 300 MG CAPSULE. PO SCH (08:09)
[2021-06-16] MEDS ORDERED: EMPAGLIFLOZIN 25 MG TABLET. PO SCH (09:00)
[2021-06-16] MEDS: traMADol 50 MG TABLET PO PRN (09:00)
[2021-06-16] MEDS ORDERED: clonazePAM 1 MG TABLET PO SCH (09:00)
--- NOTE | 2021-06-16 09:20 | DS ---
DATE OF DISCHARGE: 06/16/2021 ATTENDING PHYSICIAN: Dr. Vieira. FINAL DISCHARGE DIAGNOSES: 1. Acute bronchospasm with asthma. 2. Exacerbation of chronic obstructive pulmonary disease. 3. Morbid obesity. 4. Chronic kidney disease due to diuretics, she had prerenal azotemia. HISTORY AND PHYSICAL: The patient is a 55-year-old female admitted through the ED with bronchospasm. She is a nonsmoker. She is exposed to secondhand smoke. Imaging studies were nondiagnostic, but because of her bronchospasm, she was admitted for further treatment and evaluation. PHYSICAL EXAMINATION: Please see the dictated note. PERTINENT LABORATORY AND X-RAY STUDIES: On admission, her hemoglobin was 11.5 g/dL with a white count of 9100. Nonfasting blood sugar in the low 200s due to steroids. Her chemistry panel showed a creatinine of 2.8 mg/dL, BUN 51, potassium 3.3 mEq. She was asymptomatic. We held her diuretics and followup chemistry ordered for the next day could not be accomplished because she was a difficult stick and this will be postponed for outpatient followup. COURSE IN THE HOSPITAL: The patient was admitted. She was started on corticosteroid therapy along with Accu-Cheks and some p.r.n., insulin. She did well. Bronchospasm resolved by the next day. I held her loop diuretic. She did well. She was eating and her breathing was much improved. I ordered a followup chemistry panel. They were unable to process it because of a difficult stick. Clinically, she did not need to be in the hospital. Therefore, I recommended she get a followup visit with her primary care physician, Dr. Jasso and recheck chemistry panel in 1 week's time. Her meds have been simplified. I recommended 5 more days of prednisone 40 mg daily, tapering is not necessary. In addition, she should continue her Lipitor, olmesartan, tramadol, Klonopin, Neurontin, Prozac, olanzapine, potassium, metformin, Jardiance and Synthroid, doses unchanged. For now, I took the liberty of having her stop her Lasix and Demadex. I suggest a followup visit with her PCP in 1 week's time and recheck lab work. She was discharged from our hospital in stable condition with explicit instruction and followup care. Total discharge time spent [address]: DENNY/monica TID: [id number] CC: José Jasso
--- NOTE | 2021-06-16 10:14 | NUR ---
PATIENT IS DISCHARGED HOME, DISCHARGED INSTRUCTIONS REVIEWED, PATIENT VERBALIZED UNDERSTANDING. HOME MEDS RETURNED BACK TO THE PATIENT FROM PHARMACY. PATIENT LEFT ROOM VIA W/C ACCOMP BY THIS RN. PATIENT TAKEN HOME BY FAMILY VIA PERSONAL VEHICLE.
== END 2021-06-16 10:10 | disposition home or self-care (01) | DRG 202 ==
LOC: ER 05:03 → 1 SOUTH 06:52
PROVIDERS: ADMIT Hospitalist; ATTEND Hospitalist
DX: J45.901 Unspecified asthma with (acute) exacerbation (principal); N17.9 Acute kidney failure, unspecified; J44.1 Chronic obstructive pulmonary disease with (acute) exacerbation; J44.0 Chronic obstructive pulmonary disease with (acute) lower respiratory infection; Z68.44 Body mass index [BMI] 60.0-69.9, adult; E11.22 Type 2 diabetes mellitus with diabetic chronic kidney disease; E66.01 Morbid (severe) obesity due to excess calories; E78.00 Pure hypercholesterolemia, unspecified; I12.9 Hypertensive chronic kidney disease with stage 1 through stage 4 chronic kidney disease, or unspecified chronic kidney disease; K76.0 Fatty (change of) liver, not elsewhere classified; N18.9 Chronic kidney disease, unspecified; T50.2X5A Adverse effect of carbonic-anhydrase inhibitors, benzothiadiazides and other diuretics, initial encounter; Z77.22 Contact with and (suspected) exposure to environmental tobacco smoke (acute) (chronic); Z80.1 Family history of malignant neoplasm of trachea, bronchus and lung; Z82.5 Family history of asthma and other chronic lower respiratory diseases; Z90.710 Acquired absence of both cervix and uterus; F41.9 Anxiety disorder, unspecified; Z20.822 Contact with and (suspected) exposure to COVID-19; Z88.8 Allergy status to other drugs, medicaments and biological substances; Z91.040 Latex allergy status
CPT/HCPCS: 36415; 71250; 80053; 81001; 82947; 83735; 83880; 84484; 85025; 87426; 93005; 94640; 96360; 96361; J1815; J2930; J7120; J8540; U0003; 99285-25; J2001; J7030